=== PATIENT | male | born 1990 | race Caucasian/White ===

== ENCOUNTER 2017-04-04 19:41 | Emergency (ER) | payer OTHER, BC ==
[~2017-04-04] VITALS: Ht 170.2 cm; Wt 178.5 kg
[2017-04-04 19:43] VITALS: BP 183/102; TEMP 36.7; Ht 170.2 cm; Wt 178.5 kg
--- NOTE | 2017-04-04 20:22 | DIAGNOSTIC IMAGING REPORT ---
RIGHT SHOULDER MIN 2 VIEWS ROUTINE CLINICAL HISTORY: 26 years-old Male presenting with fall at work; R shoulder pain. TECHNIQUE: Internal rotation, external rotation, Grashey views of the right shoulder were obtained. COMPARISON: None. FINDINGS: Anterior dislocation of the humeral head relative to the glenoid. No osseous irregularity of the humeral head or glenoid to suggest fracture. Acromioclavicular joint congruent. Visualized portion of the right hemithorax normal. IMPRESSION: Anterior dislocation of the humeral head. No apparent fracture. The report will be called/faxed according to standard departmental protocol. Electronically signed by: Chaz David M.D. 04/04/2017 8:21 PM Dictated Date/Time: 04/04/2017 8:19 PM
--- NOTE | 2017-04-04 20:57 | DIAGNOSTIC IMAGING REPORT ---
RIGHT SHOULDER MIN 2 VIEWS ROUTINE CLINICAL HISTORY: 26 years-old Male presenting with ? reduction of ant R shoulder dislocation Right. TECHNIQUE: Internal rotation, external rotation, and Grashey views of the right shoulder were obtained. COMPARISON: Plain radiographs of the right shoulder performed earlier the same day. FINDINGS: Previously noted dislocation of the right humeral head is no longer apparent on internal or external views. Glenohumeral and acromioclavicular joints congruent. No acute fracture. Visualized portions of the right hemithorax normal. IMPRESSION: Interval reduction of the right humeral head. No acute osseous abnormality. Electronically signed by: Chaz David M.D. 04/04/2017 8:56 PM Dictated Date/Time: 04/04/2017 8:55 PM
[2017-04-04 21:18] VITALS: PULSE 96; O2SAT 95
--- NOTE | 2017-04-05 01:41 | EMERGENCY ROOM VISIT NOTE ---
ED Visit Note First contact with patient: 19:54 Chief Complaint: Right shoulder pain. History of Present Illness: Mr. Crane is a 26-year-old white male who ambulates into the ED complaining of right shoulder pain over the distal clavicle and humeral head. Patient reports he fell at work approximately one hour ago; he reports he slipped on a wet floor. He is unsure the position of the shoulder at the time of the fall. He reports for the fall he was not experiencing any lightheadedness or dizziness, the time of the fall he did not strike his head and since the fall he has had no signs of head injury. Currently he describes his pain as sharp and throbbing. He rates his discomfort 7/10. His pain is nonradiating. His pain worsens with palpation and all attempts to move the shoulder. He has not identified any alleviating factors related to the pain. He has not taken any medications for pain prior to arrival at the hospital. He denies any associated neck pain, elbow pain, forearm pain, wrist pain, arm weakness/numbness/tingling. He denies any previous significant injuries or surgeries to the right shoulder. Review of Systems: As noted above in history of present illness. 8 body systems were reviewed and found to be negative as noted above. Past Medical History: Patient denies. Current Medications: Patient denies. Allergies to Medications: Sulfa. Social History: Patient is currently employed; he feels safe in his home environment; he denies tobacco use; he admits to alcohol use. Physical Examination: Vital Signs: Date Time Temp Pulse Resp B/P (MAP) Pulse Ox O2 Delivery O2 Flow Rate FiO2 04/04/17 21:18 96 20 95 04/04/17 19:43 36.7 105 18 183/102 96 Room Air GENERAL: 26-year-old male in mild to moderate distress due to pain, nontoxic- appearing, afebrile and hemodynamically stable. NEUROLOGICAL: Awake, alert and oriented to person, place and time. Answering questions appropriately and following commands. Normal gait. No focal motor or sensory deficits. SKIN: Warm, dry and pink. No soft tissue trauma noted. HEENT: Atraumatic and normocephalic. BACK: No tenderness over the bony cervical and thoracic spine. THORAX: Lungs sounds are clear to auscultation and equal bilaterally with symmetrical chest wall. No crepitus, tenderness, subcutaneous air or deformities noted. RIGHT UPPER EXTREMITY: Questionable deformity at the humeral head. No tenderness over the distal clavicle or acromioclavicular joint. I do not appreciate any local bony crepitus. No tenderness over the scapula. Patient refused to do range of motion exercises due to pain. No tenderness over the distal humerus, elbow, forearm, wrist or hand. Throughout the lower arm the skin was warm and pink and capillary refill is brisk. He was able to distinguish light sensations through all dermatomes. ED Course: Patient is assessed as noted above. Patient's medication list was reviewed. Patient was offered pain medications and refused. Right Shoulder X-Rays: Were read by myself and the radiologist showing a anterior dislocation of the humeral head. No fractures were noted. While patient was being x-rayed he reports he felt a popping sensation in his shoulder and reported a significant reduction in his pain. Patient was reevaluated and there was no longer any deformity and he only had minimal tenderness over the humeral head. Repeat Right Shoulder X-Rays: Were read by myself and the radiologist showing no fractures or dislocations and reduction of his dislocation. Patient's right shoulder was placed in a sling. Patient was educated about today's findings and instructed on his treatment plan ; he verbalizes understanding and agreement with this plan. Clinical Impression: Right shoulder dislocation. Work related injury. Disposition: Patient discharged home in stable condition accompanied by female friends; prior to departure he was reassessed and subjectively reported that he was pain-free. Plan: Comfort measures were discussed with the patient including rest, ice, splint use and ibuprofen and acetaminophen. Patient was encouraged to follow-up with Workmen's Compensation for recheck and return to work instruction. Patient was encouraged return to the ED for worsening/uncontrolled pain, uncontrolled swelling, right upper extremity weakness/numbness/tingling or any new/concerning symptoms.
== END 2017-04-04 21:20 | disposition home or self-care (01) ==
LOC: C.EDB 19:44 → C.EDD 21:20
DX: S43.004A Unspecified dislocation of right shoulder joint, initial encounter (principal); W01.198A Fall on same level from slipping, tripping and stumbling with subsequent striking against other object, initial encounter

== ENCOUNTER 2019-08-01 14:27 | Inpatient (IN) ==
[2019-08-01 15:29] LABS: Alanine Aminotransferase 24 U/L (12-78); Albumin Level 1.9 gm/dl (3.4-5.0); Aspartate Aminotransferase 23 U/L (15-37); BUN Creatinine Ratio 9.1 (10-20); Blood Urea Nitrogen 8 mg/dl (7-18); Calcium 8.8 mg/dl (8.5-10.1); Carbon Dioxide 27 mmol/L (21-32); Chloride 105 mmol/L (98-107); Creatinine Clr Calc Pharmacy 227.2 ml/min; Est GFR (African American) 141.5; Glucose 106 mg/dl (70-99); Magnesium 1.6 mg/dl (1.8-2.4); Potassium 4.2 mmol/L (3.5-5.1); Sodium 139 mmol/L (136-145)
[2019-08-01 15:34] LABS: Albumin Globulin Ratio 0.5 (0.9-2); Alkaline Phosphatase 109 U/L (45-117); Bilirubin,Total 0.7 mg/dl (0.2-1); Globulin 4.2 gm/dl (2.5-4.0); NT Pro B Type Natriuretic Pept 4442 pg/ml (0-450); Total Protein 6.1 gm/dl (6.4-8.2); Troponin I < 0.015 ng/ml (0-0.045)
[2019-08-01 15:38] LABS: Basophils # (auto) 0.03 K/uL (0-0.2); Basophils % (auto) 0.5 %; Eosinophils # (auto) 0.05 K/uL (0-0.5); Eosinophils % (auto) 0.9 %; Hematocrit (blood only) 45.1 % (42-52); Hemoglobin 14.6 g/dL (14.0-18.0); Immature Granulocytes # (auto) 0.01 K/uL (0.00-0.02); Immature Granulocytes % (auto) 0.2 %; Lymphocytes # (auto) 1.08 K/uL (1.2-3.4); Mean Corpuscular Hemoglobin 28.2 pg (25-34); Mean Corpuscular Hgb Conc 32.4 g/dL (32-36); Mean Corpuscular Volume 87.1 fL (80-100); Mean Platelet Volume 10.3 fL (7.4-10.4); Monocytes # (auto) 0.63 K/uL (0.11-0.59); Monocytes % (auto) 11.1 %; Neutrophils # (auto) 3.89 K/uL (1.4-6.5); Neutrophils % (auto) 68.3 %; Platelet Count 281 K/uL (130-400); RDW Coefficient of Variation 15.7 % (11.5-14.5); RDW Standard Deviation 50.2 fL (36.4-46.3); Red Blood Count 5.18 M/uL (4.7-6.1); White Blood Count 5.69 K/uL (4.8-10.8)
[2019-08-01 16:57] LABS: INR 1.3 (0.9-1.1); Partial Thromboplastin Time 28.1 Seconds (21.0-31.0)
--- NOTE | 2019-08-01 17:19 | CT Scan Report ---
CT angio chest PE protocol CT DOSE: 1147.39 mGy.cm HISTORY: 28 years-old Male with EVAL FOR PE. Acute shortness of breath TECHNIQUE: Multiple CTA images of the chest were obtained after the intravenous administration of 117 ml Optiray 320. Coronal and sagittal MIPS were obtained from the axial data set and were submitted for review. All measurements were obtained according to NASCET criteria. A dose lowering technique w as utilized adhering to the principles of ALARA. COMPARISON: Chest radiographs of same day FINDINGS: CTA: Moderate multichamber cardiomegaly. Small pericardial effusion is most pronounced inferiorly. Left he art structures are not well opacified secondary to contrast bolus timing. No thoracic aortic aneurysm or dissection identified. Pulmonary arterial tree is not well opacified secondary to contrast bolus timing. The lobar, segmental and subsegmental branches specifically are not well evaluated. No centra l pulmonary emboli are identified. CT CHEST: Unremarkable thyroid. Nonspecific mildly prominent hilar and subcarinal lymph nodes with mildly enlar ged subcarinal lymph nodes, nonspecific. Trace right and small left pleural effusions. No pneumothora x. Mild bilateral intralobular septal thickening. Mild bilateral bronchial wall thickening. Linear kilgore bsegmental and patchy bibasilar groundglass opacities suggest atelectasis. Mild air trapping within t he lung bases. 4 mm calcified granuloma of the lingula. Central airways appear patent. The liver is enlarged. There is suggestion of hepatic steatosis. Nonspecific body wall edema. Bilater al gynecomastia. Bones appear intact. IMPRESSION: 1. Cardiomegaly with small pericardial effusion. 2. Trace right and small left pleural effusions. 3. Suboptimal evaluation of the pulmonary arterial tree secondary to contrast bolus timing. No centra l pulmonary embolus identified. 4. Mild left greater than right bibasilar atelectasis with air trapping. The above report was generated using voice recognition software. It may contain grammatical, syntax o r spelling errors. Electronically signed by: Sourav Beaulieu M.D. 08/01/2019 5:17 PM
[2019-08-01] MEDS ORDERED: FUROSEMIDE 40 MG/4 ML VIAL IV STA (17:38)
--- NOTE | 2019-08-01 18:46 | History & Physical Report ---
Date of Service August 01, 2019 Assessment & Plan (1) New onset of congestive heart failure: Add IV Lasix. Check echocardiogram. Cardiology consult. (2) Pericardial effusion: (3) Pleural effusion: (4) AG (obstructive sleep apnea): CPAP nightly (5) Anxiety: Continue home medications (6) Anasarca: (7) Lymphedema: (8) DVT prophylaxis: Add SQ heparin History of Present Illness Chief Complaint: Shortness of breath and swelling of the body Primary Care P jarrod: Marie Pompa MD The patient is 28-year-old male with super morbid obesity; he has noted gradually progressive dyspnea and swelling of the legs for the last 2 months. He has been taking Lasix which was switched to HCTZ yesterday by his family physician. Today he noticed increasing scrotal edema. The further work-up done in the ER showed that patient has acute congestive heart failure with anasarca. He was started on IV Lasix and will be admitted for further evaluation and management. He denies any chest pain. No cough/ sputum, hemoptysis. He has a history of sleep apnea and is supposed to start using CPAP. Allergies Allergy/AdvReac Type Severity Reaction Status Date / Time Sulfa (Sulfonamide Allergy Unknown hives Verified 08/01/19 15:37 Antibiotics) Home Medications Home Medications Medication Instructions Recorded Confirmed Type CPAP Machine #1 ea 07/23/19 07/31/19 Rx miscellaneous medical supply #1 ea 07/23/19 07/31/19 Rx hydrochlorothiazide 25 mg PO QAM 08/01/19 08/01/19 History loratadine [Claritin] 10 mg PO QAM 08/01/19 08/01/19 History omega 5-djk-ahu-fish oil [Fish Oil] 2 cap PO QAM 08/01/19 08/01/19 History sertraline [Zoloft] 25 mg PO QAM 08/01/19 08/01/19 History sertraline [Zoloft] 50 mg PO QAM 08/01/19 08/01/19 History Past Med/Surg History Medical History Anasarca Anxiety Depression Lymphedema Obesity (Chronic) AG (obstructive sleep apnea) Surgical History No history of previous surgery Family History Mother Anxiety Colon cancer Gall bladder disease Father Hypertension Sister Anxiety Depression Grandfather Prostate cancer Social History marital status: Current Living Situation: Spouse current occupational status: employed current occupation: cook Feels Safe at Home: Yes Smoking Status: Former smoker Hx Alcohol Use: Yes Alcohol Intake Frequency: Rarely Hx Substance Use: No Physical Activity Frequency: 1-2 Times per Week Review of Systems Review of Systems: All systems reviewed & are unremarkable except as noted in HPI & below Endocrine: History of erectile dysfunction + Physical Exam Physical Exam: GENERAL : No acute distress EYES: No icterus, gaze conjugate NOSE: No evidence of epistaxis MOUTH: No lesions or candidiasis, mucosa moist NECK: Supple LUNGS: CTA B/L, no wheezes, rales or rhonchi HEART: Regular, rate controlled ABDOMEN: Soft, NT, ND, BS Present EXTREMITIES: Bilateral swelling of the legs and lymphedema noted. NEURO: A&OX3 Scrotal edema noted Results & Data Vital Signs (Past 12 Hours) Vital Signs Temp Pulse Resp BP Pulse Ox 08/01/19 17:14 113 H 21 133/88 95 08/01/19 16:30 114 H 21 92 08/01/19 16:23 116 H 23 136/86 96 08/01/19 16:00 112 H 20 95 08/01/19 15:30 112 H 21 93 08/01/19 15:11 117 H 23 136/86 93 08/01/19 15:04 118 H 22 94 08/01/19 14:55 119 H 95 08/01/19 14:29 97.7 F 125 H 22 165/114 H 91 Laboratory Results 08/01/19 15:00 08/01/19 15:00 Diagnostic Findings EVAL FOR PE. Acute shortness of breath TECHNIQUE: Multiple CTA images of the chest were obtained after the intravenous administration of 117 ml Optiray 320. Coronal and sagittal MIPS were obtained from the axial data set and were submitted for review. All measurements were obtained according to NASCET criteria. A dose lowering technique was utilized adhering to the principles of ALARA. COMPARISON: Chest radiographs of same day FINDINGS: CTA: Moderate multichamber cardiomegaly. Small pericardial effusion is most pronounced inferiorly. Left heart structures are not well opacified secondary to contrast bolus timing. No thoracic aortic aneurysm or dissection identified. Pulmonary arterial tree is not well opacified secondary to contrast bolus timing. The lobar, segmental and subsegmental branches specifically are not well evaluated. No central pulmonary emboli are identified. CT CHEST: Unremarkable thyroid. Nonspecific mildly prominent hilar and subcarinal lymph nodes with mildly enlarged subcarinal lymph nodes, nonspecific. Trace right and small left pleural effusions. No pneumothorax. Mild bilateral intralobular septal thickening. Mild bilateral bronchial wall thickening. Linear subsegmental and patchy bibasilar groundglass opacities suggest atelectasis. Mild air trapping within the lung bases. 4 mm calcified granuloma of the lingula. Central airways appear patent. The liver is enlarged. There is suggestion of hepatic steatosis. Nonspecific body wall edema. Bilateral gynecomastia. Bones appear intact. IMPRESSION: 1. Cardiomegaly with small pericardial effusion. 2. Trace right and small left pleural effusions. 3. Suboptimal evaluation of the pulmonary arterial tree secondary to contrast bolus timing. No central pulmonary embolus identified. 4. Mild left greater than right bibasilar atelectasis with air trapping. ULTRASOUND TESTES AND SCROTUM CLINICAL HISTORY: Scrotal swelling. COMPARISON STUDY: No priors. TECHNIQUE: Real-time, grayscale, and color Doppler sonography of the testes and scrotum is performed. Images are reviewed in the transverse and longitudinal planes. FINDINGS: The testes are normal in size and homogeneous in echotexture. The right testis measures 3.6 x 2.6 x 2.9 cm and the left testis measures 3.7 x 2.6 x 2.1 cm. No intratesticular mass is seen. Testicular blood flow is normal and symmetric. Normal Doppler waveforms are identified in both testes. The epididymal heads are normal in appearance. The right epididymal head measures 1.1 cm in length and the left epididymal head measures 1.2 cm in length. There are small bilateral hydroceles. No varicocele is seen. There is marked edema of the scrotal wall. IMPRESSION: 1. Unremarkable sonographic appearance of the testes. 2. There is marked nonspecific scrotal wall edema. 3. Small bilateral hydroceles. The above report was generated using voice recognition software. It may contain grammatical, syntax or spelling errors. Code Status & VTE Plan Code Status full code VTE Prophylaxis Plan VTE Prophylaxis will be ordered: Yes PG Care Time/CCT Total # of Minutes Spent Total Time Spent with Patient: Total time spent is greater than 50% in coordination of care (as documented) at patient's floor/unit and/or counseling patient:
[2019-08-01] MEDS ORDERED: NITROGLYCERIN SL 0.4 MG/TAB TAB SL PRN (20:08)
[2019-08-01] MEDS ORDERED: ACETAMINOPHEN 325 MG TAB PO PRN (20:08)
[2019-08-01] MEDS: FUROSEMIDE 40 MG in SYRINGE 0 ML IV SCH (20:58)
[2019-08-01] MEDS ORDERED: FUROSEMIDE 40 MG/4 ML VIAL IV SCH (21:00)
--- NOTE | 2019-08-01 21:28 | Emergency Department Note ---
Entered by Nicky Walsh acting as a scribe for Cedric Obregon MD ED Provider Note CHIEF COMPLAINT: Shortness of breath HISTORY OF PRESENT ILLNESS: The patient is a 28 year old male who presents to the Emergency Room with complaints of swelling. He reports last night he experienced swelling in his scrotum. He called his doctor this morning who ordered an ultrasound and CXR. The CXR showed possible fluid around his heart, and he was referred here to the ED. He does take daily blood pressure medication as well as Lasix. He notes his legs have been increasingly swollen and he occasionally feels short of breath. Movement worsens his breathing. He does admit to a recent cough. He denies any family history of sudden before the age of 50. He admits to bloating in his abdomen from the increased fluid but denies any pain. Pt denies LOC, headache, fevers, chills, diaphoresis, visual changes, neck pain, chest pain, nausea, vomiting, abdominal pain, back pain, melena, hematochezia, urinary symptoms, numbness, weakness, lymphadenopathy, rash, or other complaints. REVIEW OF SYSTEMS: See HPI for pertinent positives and negatives. A total of ten systems were reviewed and were otherwise negative. PMHx/PSHx: Anxiety. Depression. AG. SOCIAL HISTORY: Patient lives at home. PHYSICAL EXAM: GENERAL: Awake, alert, uncomfortable-appearing, in no distress HENT: Normocephalic, atraumatic. Oropharynx unremarkable. EYES: PERRL. Normal conjunctiva. Sclera non-icteric. NECK: Inspection normal. Non-tender. Supple. No nuchal rigidity. FROM. No masses. RESPIRATORY: Clear to auscultation. No wheezes. No rales. Normal respiratory effort. CARDIAC:Tachycardic rate. Normal rhythm. No murmurs. No rubs. Extremities warm and well perfused. Pulses equal. No JVD. GI: Soft, non-distended. No tenderness to palpation. No rebound or guarding. No masses. RECTAL: Deferred. MUSCULOSKELETAL: Atraumatic. Chest examination reveals no tenderness. The back is symmetrical on inspection without obvious abnormality. There is no CVA tenderness to palpation. No joint edema. LOWER EXTREMITIES: Calves are equal size bilaterally and non-tender. 3+ pitting edema up to lower abdomen. No discoloration. NEURO: Normal sensorium. No sensory or motor deficits noted. SKIN: No rash or jaundice noted. EMERGENCY DEPARTMENT COURSE: 1500: Past medical records reviewed. The patient was evaluated in room B11B, and a complete history and physical examination were performed. 1820: I discussed the patients case with Dr. Pantoja, [facility]. The patient will be further evaluated. MEDICAL DECISION MAKING: Prior records/ancillary studies reviewed. Triage Nursing notes reviewed and agree them. Additional history obtained from the family. The patient's history was concerning for leg swelling and mild shortness of breath. Differential diagnosis: Etiologies such as CHF, pulmonary embolism, pneumonia, COPD, reactive airway disease, cardiac ischemia, pneumothorax, musculoskeletal, infections, gastrointestinal, as well as others were entertained. Physical examination: 3+ lower extremity edema noted. The patient was not hypoxic. ER treatment provided: IV Lasix On reassessment the patient felt better. Diagnostic interpretation by me: The electrocardiogram revealed a low voltage QRS. No ischemia. The labs revealed an unremarkable CBC and chemistry panel. Troponin negative. The patient's BNP is significantly elevated concerning for CHF. Imaging studies: Chest CT angiogram revealed no evidence of pulmonary emboli. There was pericardial effusion as well as pleural effusions. The patient has findings consistent with new onset CHF. Further evaluation and management will be necessary in the hospital. Consultation: A consultation was placed with the hospitalist. The case was discussed and diagnostics were reviewed. The patient was evaluated in the ER for further treatment. IMPRESSION: New onset CHF. Tachycardia. Abnormal EKG. Pericardial effusion. Pleural effusion. PLAN: Further evaluation by hospitalist The scribe's documentation has been prepared under my direction and personally reviewed by me in its entirety. I confirm that the note above accurately reflects all work, treatment, procedures, and medical decision making performed by me. Impression & Plan New onset of congestive heart failure, Tachycardia, Abnormal EKG, Pericardial effusion, Pleural effusion Past Med/Surg History Medical History Anasarca Anxiety Depression Lymphedema Obesity (Chronic) AG (obstructive sleep apnea) Surgical History No history of previous surgery Family History Mother Anxiety Colon cancer Gall bladder disease Father Hypertension Sister Anxiety Depression Grandfather Prostate cancer Social History Preferred Language: Romansh Communication Ability: Effective Certified Medical Technician Required: No Beliefs That Will Affect Care: None marital status: Current Living Situation: Spouse current occupational status: employed current occupation: cook Feels Safe at Home: Yes Smoking Status: Never smoker Second Hand Exposure: No ; Hx Alcohol Use: No Hx Substance Use: No Physical Activity Frequency: 1-2 Times per Week Results & Data Vital Signs Vital Signs - 24 hr 08/01/19 14:29 08/01/19 14:43 08/01/19 14:55 Temperature 36.5 C Temperature Source Oral Pulse Rate 125 H 119 H Pulse Rate from SpO2 Sensor Respiratory Rate 22 Respiratory Effort / Characteristics Non-Labored Spontaneous Respiratory Depth Normal Blood Pressure 165/114 H Blood Pressure Mean 131 Blood Pressure Position Sitting Pulse Oximetry 91 95 Oxygen Delivery Method Room Air Room Air Room Air Sepsis Recent Fever Within 48 Hours No Sepsis Action Taken by Nursing No Action Required 08/01/19 15:04 08/01/19 15:07 08/01/19 15:11 Temperature Temperature Source Pulse Rate 118 H 117 H Pulse Rate from SpO2 Sensor 118 H 119 H Respiratory Rate 22 23 Respiratory Effort / Characteristics Respiratory Depth Blood Pressure 136/86 Blood Pressure Mean 95 Blood Pressure Position Pulse Oximetry 94 93 Oxygen Delivery Method Room Air Sepsis Recent Fever Within 48 Hours Sepsis Action Taken by Nursing 08/01/19 15:30 08/01/19 16:00 08/01/19 16:23 Temperature Temperature Source Pulse Rate 112 H 112 H 116 H Pulse Rate from SpO2 Sensor 111 H 113 H 115 H Respiratory Rate 21 20 23 Respiratory Effort / Characteristics Respiratory Depth Blood Pressure 136/86 Blood Pressure Mean 95 Blood Pressure Position Pulse Oximetry 93 95 96 Oxygen Delivery Method Sepsis Recent Fever Within 48 Hours Sepsis Action Taken by Nursing 08/01/19 16:30 08/01/19 17:14 08/01/19 17:30 Temperature Temperature Source Pulse Rate 114 H 113 H 112 H Pulse Rate from SpO2 Sensor 113 H 113 H 112 H Respiratory Rate 21 21 21 Respiratory Effort / Characteristics Respiratory Depth Blood Pressure 133/88 128/80 Blood Pressure Mean 106 104 Blood Pressure Position Pulse Oximetry 92 95 95 Oxygen Delivery Method Sepsis Recent Fever Within 48 Hours Sepsis Action Taken by Nursing 08/01/19 18:00 08/01/19 18:02 08/01/19 18:30 Temperature Temperature Source Pulse Rate 111 H 111 H 118 H Pulse Rate from SpO2 Sensor 118 H Respiratory Rate 17 17 14 Respiratory Effort / Characteristics Respiratory Depth Blood Pressure 133/95 Blood Pressure Mean 109 112 Blood Pressure Position Pulse Oximetry 97 Oxygen Delivery Method Sepsis Recent Fever Within 48 Hours Sepsis Action Taken by Skilled Nursing Medications Current Medication List: was personally reviewed by me Laboratory Data Attestation: I reviewed the patient's lab results. Result diagrams: 08/01/19 15:00 08/01/19 15:00 Lab Results 08/01/19 08/01/19 08/01/19 Range/Units 15:00 15:00 15:00 WBC 5.69 (4.8-10.8) K/uL RBC 5.18 (4.7-6.1) M/uL Hgb 14.6 (14.0-18.0) g/dL Hct 45.1 (42-52) % MCV 87.1 (80-100) fL MCH 28.2 (25-34) pg MCHC 32.4 (32-36) g/dL RDW Std Deviation 50.2 H (36.4-46.3) fL RDW Coeff of Leoncio 15.7 H (11.5-14.5) % Plt Count 281 (130-400) K/uL MPV 10.3 (7.4-10.4) fL Immature Gran % (Auto) 0.2 % Neut % (Auto) 68.3 % Lymph % (Auto) 19.0 % [place] % (Auto) 11.1 % Eos % (Auto) 0.9 % Baso % (Auto) 0.5 % Immature Gran # (Auto) 0.01 (0.00-0.02) K/uL Neut # (Auto) 3.89 (1.4-6.5) K/uL Lymph # (Auto) 1.08 L (1.2-3.4) K/uL [place] # (Auto) 0.63 H (0.11-0.59) K/uL Eos # (Auto) 0.05 (0-0.5) K/uL Baso # (Auto) 0.03 (0-0.2) K/uL PT Cancelled INR Cancelled APTT Cancelled PTT Ratio Cancelled Sodium 139 (136-145) mmol/L Potassium 4.2 (3.5-5.1) mmol/L Chloride 105 (98-107) mmol/L Carbon Dioxide 27 (21-32) mmol/L Anion Gap 7.0 (3-11) BUN 8 (7-18) mg/dl Creatinine 0.82 (0.6-1.4) mg/dl Est Cr Clr Drug Dosing 227.2 ml/min Est GFR ( Amer) 141.5 Est GFR (Non-Af Amer) 122.0 BUN/Creatinine Ratio 9.1 L (10-20) Glucose 106 H (70-99) mg/dl Calcium 8.8 (8.5-10.1) mg/dl Magnesium 1.6 L (1.8-2.4) mg/dl Total Bilirubin 0.7 (0.2-1) mg/dl AST 23 (15-37) U/L ALT 24 (12-78) U/L Alkaline Phosphatase 109 (45-117) U/L Troponin I < 0.015 (0-0.045) ng/ml NT-Pro-B Natriuret Pep 4442 H (0-450) pg/ml Total Protein 6.1 L (6.4-8.2) gm/dl Albumin 1.9 L (3.4-5.0) gm/dl Globulin 4.2 H (2.5-4.0) gm/dl Albumin/Globulin Ratio 0.5 L (0.9-2) 08/01/19 Range/Units 16:19 WBC (4.8-10.8) K/uL RBC (4.7-6.1) M/uL Hgb (14.0-18.0) g/dL Hct (42-52) % MCV (80-100) fL MCH (25-34) pg MCHC (32-36) g/dL RDW Std Deviation (36.4-46.3) fL RDW Coeff of Leoncio (11.5-14.5) % Plt Count (130-400) K/uL MPV (7.4-10.4) fL Immature Gran % (Auto) % Neut % (Auto) % Lymph % (Auto) % [place] % (Auto) % Eos % (Auto) % Baso % (Auto) % Immature Gran # (Auto) (0.00-0.02) K/uL Neut # (Auto) (1.4-6.5) K/uL Lymph # (Auto) (1.2-3.4) K/uL [place] # (Auto) (0.11-0.59) K/uL Eos # (Auto) (0-0.5) K/uL Baso # (Auto) (0-0.2) K/uL PT 13.0 H INR 1.3 H APTT 28.1 PTT Ratio 1.0 Sodium (136-145) mmol/L Potassium (3.5-5.1) mmol/L Chloride (98-107) mmol/L Carbon Dioxide (21-32) mmol/L Anion Gap (3-11) BUN (7-18) mg/dl Creatinine (0.6-1.4) mg/dl Est Cr Clr Drug Dosing ml/min Est GFR ( Amer) Est GFR (Non-Af Amer) BUN/Creatinine Ratio (10-20) Glucose (70-99) mg/dl Calcium (8.5-10.1) mg/dl Magnesium (1.8-2.4) mg/dl Total Bilirubin (0.2-1) mg/dl AST (15-37) U/L ALT (12-78) U/L Alkaline Phosphatase (45-117) U/L Troponin I (0-0.045) ng/ml NT-Pro-B Natriuret Pep (0-450) pg/ml Total Protein (6.4-8.2) gm/dl Albumin (3.4-5.0) gm/dl Globulin (2.5-4.0) gm/dl Albumin/Globulin Ratio (0.9-2) Administered Medications Furosemide 40 mg/ Syringe 4 mls @ 4 mls/min IV [id number] DAVID Stop: 08/31/19 20:59 Last Admin: 08/01/19 20:58 Dose: 4 mls/min Documented by: [id number] Discontinued Medications Furosemide (Lasix) 40 mg IV NOW STA Stop: 08/01/19 17:39 Last Admin: 08/01/19 18:18 Dose: 40 mg Documented by: [id number] Imaging Data Radiologist's Impression: Radiology results as stated below per my review and the radiologist's interpretation: CT angio chest PE protocol CT DOSE: 1147.39 mGy.cm HISTORY: 28 years-old Male with EVAL FOR PE. Acute shortness of breath TECHNIQUE: Multiple CTA images of the chest were obtained after the intravenous administration of 117 ml Optiray 320. Coronal and sagittal MIPS were obtained from the axial data set and were submitted for review. All measurements were obtained according to NASCET criteria. A dose lowering technique was utilized adhering to the principles of ALARA. COMPARISON: Chest radiographs of same day FINDINGS: CTA: Moderate multichamber cardiomegaly. Small pericardial effusion is most pronounced inferiorly. Left heart structures are not well opacified secondary to contrast bolus timing. No thoracic aortic aneurysm or dissection identified. Pulmonary arterial tree is not well opacified secondary to contrast bolus timing. The lobar, segmental and subsegmental branches specifically are not well evaluated. No central pulmonary emboli are identified. CT CHEST: Unremarkable thyroid. Nonspecific mildly prominent hilar and subcarinal lymph nodes with mildly enlarged subcarinal lymph nodes, nonspecific. Trace right and small left pleural effusions. No pneumothorax. Mild bilateral intralobular septal thickening. Mild bilateral bronchial wall thickening. Linear subsegmental and patchy bibasilar groundglass opacities suggest atelectasis. Mild air trapping within the lung bases. 4 mm calcified granuloma of the lingula. Central airways appear patent. The liver is enlarged. There is suggestion of hepatic steatosis. Nonspecific body wall edema. Bilateral gynecomastia. Bones appear intact. IMPRESSION: 1. Cardiomegaly with small pericardial effusion. 2. Trace right and small left pleural effusions. 3. Suboptimal evaluation of the pulmonary arterial tree secondary to contrast bolus timing. No central pulmonary embolus identified. 4. Mild left greater than right bibasilar atelectasis with air trapping. The above report was generated using voice recognition software. It may contain grammatical, syntax or spelling errors. Electronically signed by: Sourav Beaulieu M.D. 08/01/2019 5:17 PM ECG Data Attestation: I personally reviewed and interpreted this ECG as follows: Indication: + SOB/dyspnea Rate (beats per minute): 118 Rhythm: sinus tachycardia ECG Intervals/blocks: + Normal QRS and + Normal QT ECG ST segments: no ST depression and no ST elevation ECG Findings: + Poor R wave progression and + Other (Low voltage QRS); no PACs and no PVCs Blood Pressure Blood Pressure Findings: Elevated blood pressure Blood Pressure Disposition: further management by hospitalist Discharge Plan Visit Data *Final* Discharge Date/Time: 08/01/19 19:38 Chief Complaint: Shortness of Breath/Dyspnea Stated Complaint: FLUID IN CHEST ED Provider: Cedric Obregon Discharge Problem: New onset of congestive heart failure, Tachycardia, Abnormal EKG, Pericardial effusion, Pleural effusion Patient Disposition: Admitted As Inpatient Discharge Instructions Interventions: ED Discharge Assessment Last Done: 08/01/19 19:38 The scribe's documentation has been prepared under my direction and personally reviewed by me in its entirety. I confirm that the note above accurately reflect s all work, treatment, procedures, and medical decision making performed by me.
[2019-08-01 23:22] LABS: Chol HDL Ratio 5; Cholesterol 217 mg/dl (0-200); HDL Cholesterol 47 mg/dl; LDL Cholesterol Calculated 145 mg/dl; Triglycerides 126 mg/dl (0-150); VLDL Cholesterol 25 mg/dl
[2019-08-02 03:24] LABS: Hematocrit (blood only) 41.1 % (42-52); Hemoglobin 13.4 g/dL (14.0-18.0); Mean Corpuscular Hemoglobin 28.2 pg (25-34); Mean Corpuscular Hgb Conc 32.6 g/dL (32-36); Mean Corpuscular Volume 86.5 fL (80-100); Mean Platelet Volume 9.7 fL (7.4-10.4); Platelet Count 247 K/uL (130-400); RDW Coefficient of Variation 15.8 % (11.5-14.5); RDW Standard Deviation 50.2 fL (36.4-46.3); Red Blood Count 4.75 M/uL (4.7-6.1); White Blood Count 6.34 K/uL (4.8-10.8)
[2019-08-02 03:43] LABS: BUN Creatinine Ratio 9.1 (10-20); Blood Urea Nitrogen 6 mg/dl (7-18); Calcium 8.6 mg/dl (8.5-10.1); Carbon Dioxide 31 mmol/L (21-32); Chloride 106 mmol/L (98-107); Est GFR (African American) > 150.0; Glucose 86 mg/dl (70-99); Magnesium 1.5 mg/dl (1.8-2.4); Sodium 141 mmol/L (136-145)
[2019-08-02 03:48] LABS: Troponin I < 0.015 ng/ml (0-0.045)
[2019-08-02 04:07] LABS: Potassium 3.5 mmol/L (3.5-5.1)
[2019-08-02] MEDS: ALBUT/IPRATROP 3MG/0.5MG NEB 3 ML VIAL NEB SCH ×2 (07:31→11:16)
[2019-08-02] MEDS: SERTRALINE HCL 50 MG TABLET PO SCH ×2 (08:01)
[2019-08-02] MEDS: FUROSEMIDE 40 MG in SYRINGE 0 ML IV SCH ×2 (08:01→17:08)
[2019-08-02] MEDS ORDERED: ASPIRIN 81 MG ECTAB PO SCH (09:00)
[2019-08-02 10:23] LABS: Appearance Urine Clear (Clear); Bilirubin Urine Negative (Negative); Blood Urine Negative (Negative); Color Urine Yellow; Glucose Urine UA Negative (Negative); Ketones Urine Negative (Negative); Leukocyte Esterase Urine Negative (Negative); Nitrite Urine Negative (Negative); Protein Urine Negative (Negative); Specific Gravity Urine 1.008 (1.000-1.030); Urobilinogen Urine Negative (Negative)
[2019-08-02 10:55] LABS: Creatinine Urine Random < 13.0 mg/dl; Total Protein Urine Random 7.6 mg/dl (0-11.9)
[2019-08-02] MEDS ORDERED: POTASSIUM CHLORIDE 20 MEQ TABCR PO STA (11:08)
[2019-08-02] MEDS ORDERED: ALBUT/IPRATROP 3MG/0.5MG NEB 3 ML VIAL NEB PRN (11:11)
--- NOTE | 2019-08-02 11:23 | Cardiology Consultation ---
Date of Consultation August 02, 2019 Assessment & Plan (1) New onset of congestive heart failure: He presents with progressive fluid retention consistent with congestive heart failure. This is happened over the last 3 months, he has been placed on diuretics and despite that has continued to have increasing edema and weight. He will need to be diuresed, he has lost some fluid since arrival and we need to continue with intravenous diuresis. His albumin is low which is probably contributory, but it is mostly his left ventricular dysfunction causing his heart failure. (2) Anasarca: He has anasarca with severe peripheral edema, extending up to his waist, he also feels that his arms are puffy as well. He has a massive amount of fluid which we will need to remove. (3) Pericardial effusion: He does have a pericardial effusion identified on echocardiography. I believe this is part of his cardiomyopathy and not a separate issue. I would diurese him and at some point will repeat the echo to see if the effusion has resolved somewhat. (4) Cardiomyopathy: He has a severe dilated cardiomyopathy which based on symptoms is about 3 months, perhaps little bit longer, and duration. There is no obvious cause. He does not recall having a viral illness but he may not recall it, he does not have any other obvious cause but we will need to look for hemochromatosis, protein studies and Lyme and HIV. It is very unlikely that this is ischemic, I do not think we need an ischemia evaluation at this time. History of Present Illness Reason for Consultation: Peripheral edema Attending Physician: Faye Mcbride MD History of Present Illness This is a 28-year-old male with a history of sleep apnea but no known heart disease. He has been having progressive edema over the last 3 months, he is also been quite short of breath and has dyspnea on exertion. He has been evaluated for sleep apnea recently and apparently has severe sleep apnea but he does not have an appliance yet. He is morbidly obese and is noticed that his weight has risen considerably over the last 3 months with his edema. He was started on oral Lasix as an outpatient several weeks ago and even with that he had an increase in edema. He does not have exertional chest discomfort, he has not had lightheadedness, dizziness, presyncope or syncope. He presented to the emergency room yesterday after being followed as an outpatient, he presented due to progressive edema and scrotal edema. Allergies Allergy/AdvReac Type Severity Reaction Status Date / Time Sulfa (Sulfonamide Allergy Unknown hives Verified 08/01/19 15:37 Antibiotics) Home Medications Home Medications Medication Instructions Recorded Confirmed Type CPAP Machine #1 ea 07/23/19 08/02/19 Rx miscellaneous medical supply #1 ea 07/23/19 08/02/19 Rx hydrochlorothiazide 25 mg PO QAM 08/01/19 08/01/19 History loratadine [Claritin] 10 mg PO QAM 08/01/19 08/01/19 History omega 3-pdw-[id number]-fish oil [Fish Oil] 2 cap PO QAM 08/01/19 08/01/19 History sertraline [Zoloft] 25 mg PO QAM 08/01/19 08/01/19 History sertraline [Zoloft] 50 mg PO QAM 08/01/19 08/01/19 History Patient History Medical History Anasarca Anxiety Depression Lymphedema Obesity (Chronic) AG (obstructive sleep apnea) Surgical History No history of previous surgery Family History Mother Anxiety Colon cancer Gall bladder disease Father Hypertension Sister Anxiety Depression Grandfather Prostate cancer Social History Preferred Language: Malagasy Communication Ability: Effective Quality Control Head Required: No Beliefs That Will Affect Care: None marital status: Current Living Situation: Spouse current occupational status: employed current occupation: cook Feels Safe at Home: Yes Smoking Status: Never smoker Second Hand Exposure: No ; Hx Alcohol Use: No Hx Substance Use: No Physical Activity Frequency: 1-2 Times per Week Review of Systems Review of Systems: All systems reviewed & are unremarkable except as noted in HPI & below Physical Exam Physical Exam: Constitutional: Alert, cooperative and in no distress. He is morbidly obese. HEENT: Unremarkable Neck: No jugular venous distention, carotid pulses are normal and equal bilaterally without bruits. Pulmonary: Clear to auscultation bilaterally. Cardiac: Regular somewhat rapid rhythm with no murmur, gallop or rub. Abdomen: Soft, nontender with normal bowel sounds. Extremities: +3 bilateral pretibial pitting edema, he has edema extending up to his waist and perhaps higher. Distal pulses intact. Neurologic: No focal findings. Gait was not tested. Skin: No rash, ecchymoses or petechiae. His distal lower extremities are somewhat erythematous. Results & Data Vital Signs (Past 12 Hours) Vital Signs Temp Pulse Pulse Resp BP BP Pulse Ox 08/02/19 07:34 36.6 C 111 H 22 130/88 96 08/02/19 04:47 36.6 C 108 H 20 122/80 90 08/02/19 01:48 104 H 16 94 08/01/19 23:59 36.7 C 117 H 20 113/68 92 Diagnostic Findings Abnormal lab results 08/01/19 08/01/19 08/01/19 Range/Units 15:00 15:00 16:19 Hgb (14.0-18.0) g/dL Hct (42-52) % RDW Std Deviation 50.2 H (36.4-46.3) fL RDW Coeff of Leoncio 15.7 H (11.5-14.5) % Lymph # (Auto) 1.08 L (1.2-3.4) K/uL [place] # (Auto) 0.63 H (0.11-0.59) K/uL PT 13.0 H (9.0-12.0) Seconds INR 1.3 H (0.9-1.1) BUN (7-18) mg/dl BUN/Creatinine Ratio 9.1 L (10-20) Glucose 106 H (70-99) mg/dl Magnesium 1.6 L (1.8-2.4) mg/dl NT-Pro-B Natriuret Pep 4442 H (0-450) pg/ml Total Protein 6.1 L (6.4-8.2) gm/dl Albumin 1.9 L (3.4-5.0) gm/dl Globulin 4.2 H (2.5-4.0) gm/dl Albumin/Globulin Ratio 0.5 L (0.9-2) Cholesterol (0-200) mg/dl Urine pH (4.5-7.5) 08/01/19 08/02/19 08/02/19 Range/Units 22:50 03:05 03:05 Hgb 13.4 L (14.0-18.0) g/dL Hct 41.1 L (42-52) % RDW Std Deviation 50.2 H (36.4-46.3) fL RDW Coeff of Leoncio 15.8 H (11.5-14.5) % Lymph # (Auto) (1.2-3.4) K/uL [place] # (Auto) (0.11-0.59) K/uL PT (9.0-12.0) Seconds INR (0.9-1.1) BUN 6 L (7-18) mg/dl BUN/Creatinine Ratio 9.1 L (10-20) Glucose (70-99) mg/dl Magnesium 1.5 L (1.8-2.4) mg/dl NT-Pro-B Natriuret Pep (0-450) pg/ml Total Protein (6.4-8.2) gm/dl Albumin (3.4-5.0) gm/dl Globulin (2.5-4.0) gm/dl Albumin/Globulin Ratio (0.9-2) Cholesterol 217 H (0-200) mg/dl Urine pH (4.5-7.5) 08/02/19 Range/Units 10:00 Hgb (14.0-18.0) g/dL Hct (42-52) % RDW Std Deviation (36.4-46.3) fL RDW Coeff of Leoncio (11.5-14.5) % Lymph # (Auto) (1.2-3.4) K/uL [place] # (Auto) (0.11-0.59) K/uL PT (9.0-12.0) Seconds INR (0.9-1.1) BUN (7-18) mg/dl BUN/Creatinine Ratio (10-20) Glucose (70-99) mg/dl Magnesium (1.8-2.4) mg/dl NT-Pro-B Natriuret Pep (0-450) pg/ml Total Protein (6.4-8.2) gm/dl Albumin (3.4-5.0) gm/dl Globulin (2.5-4.0) gm/dl Albumin/Globulin Ratio (0.9-2) Cholesterol (0-200) mg/dl Urine pH 8.0 H (4.5-7.5) His electrocardiogram on admission shows sinus rhythm, he has low voltage throughout which is probably due to his weight, he has slight right axis deviation on his first although not on the second. No acute changes. Echocardiography: His echo shows severe left ventricular dysfunction with ejection fraction of 20 to 25%, with a dilated left ventricle. PG Care Time/CCT Total # of Minutes Spent Total Time Spent with Patient: Total time spent is greater than 50% in coordination of care (as documented) at patient's floor/unit and/or counseling patient:
[2019-08-02 12:30] LABS: Ferritin 37.2 ng/ml (8-388); Thyroid Stimulating Hormone 8.1 uIu/ml (0.300-4.500)
[2019-08-02 12:46] LABS: T4 Free Thyroxine 0.98 ng/dl (0.8-1.6)
[2019-08-02 12:53] LABS: Lyme Ab IgG w/WB Rflx Negative (Negative); Lyme Ab IgM w/WB Rflx Negative (Negative)
[2019-08-02] MEDS: MAGNESIUM SULFATE / D5W 1 GM/100 ML BAG IV SCH ×2 (13:06→14:04)
--- NOTE | 2019-08-02 13:40 | Hospitalist Progress Note ---
Date of Service August 02, 2019 Assessment & Plan (1) New onset of congestive heart failure: With new onset systolic acute CHF, likely developing over the last 3 months with weight gain of approximately 48 pounds in the last 6 months, likely all fluid weight Has severe obstructive sleep apnea-currently awaiting CPAP delivery Has super obesity, family history of atrial fibrillation and AG, but no CAD No anginal type symptoms, low suspicion for ischemic cardiomyopathy Troponin negative x2 -Checking Lyme, HIV, SPEP, UPEP, CHAYA level, iron studies Appreciate cardiology consultation -Continue to diurese with IV Lasix 40 mg twice daily -Follow BMP and replace lytes as needed -Eventually will start beta-lenka and either Entresto or CHAYA inhibitor -Daily weights, strict I's and O's, add fluid restriction of 1800 mL's daily, change to low-sodium diet -Consider ischemic evaluation with cardiac catheterization after diuresis prior to discharge-will discuss further with cardiology (2) Pericardial effusion: Moderate on echocardiogram, no tamponade physiology Likely secondary to CHF and hypoalbuminemia which is likely due to poor absorption from gut edema -Continue diuresis -Repeat echocardiogram limited in the near future to reassess (3) Pleural effusion: Secondary to CHF -Diuresing as above (4) AG (obstructive sleep apnea): Severe on recent outpatient home sleep study-still awaiting CPAP delivery -Continue CPAP while here in the hospital -Asked case management to check on the status of the delivery of his CPAP to home (5) Anasarca: Secondary to CHF as above as well as hypoalbuminemia-likely related to poor absorption from that edema as well as recent change in diet in an effort to lose weight -Follow (6) Anxiety: Continue home sertraline (7) Cardiomyopathy: As above (8) Tachycardia: Sinus tachycardia secondary to CHF -Diuresing and eventually will add beta-lenka (9) Abnormal EKG: Rightward axis deviation No evidence of PE on CT angiogram chest (10) Obesity: Has always been obese but baseline weight approximately 1 year ago was 380 pounds Recent weight gain is likely all fluid weight from CHF as above -Patient has made a conscious effort to eat healthier the last 2 months to lose weight -Continue counseling (11) Hypomagnesemia: Replace and follow in the morning (12) Hypokalemia: Secondary to loop diuretic, replace and follow morning (13) Hypoalbuminemia: Significantly low at 1.9, likely secondary to poor absorption as above Total protein low at 6.1 -Follow Check urinalysis for proteinuria (14) Hypoproteinemia: As above (15) Hyperlipidemia: LDL earlier this year was significant elevated at 191 and then on repeat is down to 140 after dietary changes -Likely needs to start on a statin drug -We will start atorvastatin -Needs follow-up LFTs and lipid panel in 6 weeks (16) DVT prophylaxis: SQ heparin, HARVEY jones Disposition-remain on PCU, would recommend inpatient stay for IV diuresis for many days given that he failed outpatient diuretics by mouth Subjective Patient feeling much improved today and has already diuresed several liters of fluid since admission. Feels the swelling in his legs is down and he is weaned off oxygen, less short of breath. Denies any chest pain now or ever with exertion. Feels that his weight gain and worsening shortness of breath has been over the last 3 months. He recalls minor colds but no febrile illnesses. Nob cody in the family with a history of congestive heart failure or coronary artery disease, however his mother prematurely at age 43 from colon cancer. Father with what sounds like PVCs, uncle with atrial fibrillation in his 40s, most males in the family with obstructive sleep apnea. Grandfather with atrial fibrillation, stroke. Patient has noted severe sleep apnea on recent sleep study but has not yet received his CPAP at home Discussed the case with cardiology Telemetry with sinus tachycardia in the 110s Review of Systems Review of Systems: All systems reviewed & are unremarkable except as noted in HPI & below Physical Exam Constitutional: + morbidly obese; no acute distress and not ill appearing Eyes: + anicteric sclerae; no eyelid abnormality ENMT: Ears: no hearing impairment and no external ear abnormality Neck: trachea midline, no thyromegaly + abnormal visual inspection (Obese) Respiratory: normal respiratory effort; no labored breathing Auscultation: + diminished lung sounds (At the bases bilaterally); no crackles, no rhonchi and no wheezes Cardiovascular: Rate/Rhythm: regular rhythm and + tachycardic Heart Sounds: no murmur Vessels: no JVD (Cannot assess for JVD due to obese neck) Extremities: + edema (4+ pitting edema bilateral lower extremities all the way up to upper abdomen) Chest (Breasts): Chest: normal inspection of chest Gastrointestinal (Abdomen): normal bowel sounds, soft, nontender, no hepatosplenomegaly Musculoskeletal: Extremities: no cyanosis and no clubbing Skin: + erythema (Chronic venous stasis changes in the legs bilaterally with mild erythema) Neurologic: moves all extremities and awake; no focal motor deficits Psychiatric: A+Ox3, euthymic affect Results & Data Vital Signs (Past 12 Hours) Vital Signs Temp Pulse Pulse Pulse Resp BP Pulse Ox 08/02/19 11:37 36.5 C 113 H 22 119/71 91 08/02/19 07:34 36.6 C 111 H 22 130/88 96 08/02/19 04:47 36.6 C 108 H 20 122/80 90 08/02/19 01:48 104 H 16 94 Laboratory Results Labs reviewed Diagnostic Findings Echocardiogram with severely dilated LV with global LV hypokinesis, EF 25-30%, mild pulmonary hypertension, moderate or cardial effusion without tamponade ECG Additional Comments: Sinus tachycardia, rightward axis deviation, no ST or T wave changes PG Care Time/CCT Total # of Minutes Spent Total Time Spent with Patient: Total time spent is greater than 50% in coordination of care (as documented) at patient's floor/unit and/or counseling patient:
[2019-08-02] MEDS: HEPARIN SOD 5,000 UNIT/0.5 ML VIAL SQ SCH (21:19)
[2019-08-03] MEDS: HEPARIN SOD 5,000 UNIT/0.5 ML VIAL SQ SCH ×3 (04:57→21:26)
[2019-08-03 07:00] LABS: BUN Creatinine Ratio 10.1 (10-20); Creatinine Clr Calc Pharmacy 230.4 ml/min; Est GFR (African American) 143.6; Est GFR (Non-African American) 123.9; Magnesium 1.7 mg/dl (1.8-2.4); Potassium 3.5 mmol/L (3.5-5.1)
[2019-08-03] MEDS: SERTRALINE HCL 50 MG TABLET PO SCH ×2 (07:26→07:27)
[2019-08-03] MEDS: FUROSEMIDE 40 MG in SYRINGE 0 ML IV SCH ×2 (07:26→16:53)
[2019-08-03] MEDS ORDERED: MAGNESIUM SULFATE / D5W 1 GM/100 ML BAG IV ONE ×2 (07:30→20:00)
[2019-08-03] MEDS: ATORVASTATIN 20 MG TAB PO SCH (07:58)
--- NOTE | 2019-08-03 13:48 | Hospitalist Progress Note ---
Date of Service August 03, 2019 Assessment & Plan (1) New onset of congestive heart failure: With new onset systolic acute CHF, likely developing over the last 3 months with weight gain of approximately 48 pounds in the last 6 months, likely all fluid weight Has severe obstructive sleep apnea-currently awaiting CPAP delivery Has super obesity, family history of atrial fibrillation and AG, but no CAD No anginal type symptoms, low suspicion for ischemic cardiomyopathy Troponin negative x2 -Checking Lyme-negative, HIV-negative, SPEP-pending, UPEP-pending, CHAYA level- pending, iron studies-no evidence of iron overload Appreciate cardiology consultation DOing very well with diuresis thus far, down -5Kg, still a long way to go Was not responding to po diuretics as outpt -Continue to diurese with IV Lasix 40 mg twice daily -Follow BMP and replace lytes as needed -Eventually will start beta-lenka and either Entresto or CHAYA inhibitor -Daily weights, strict I's and O's, fluid restriction of 1800 mL's daily, low- sodium diet -Consider ischemic evaluation with cardiac catheterization after diuresis prior to discharge-will discuss further with cardiology--> Dr. Toth/Eric do not think he needs ischemic eval (2) Pericardial effusion: Moderate on echocardiogram, no tamponade physiology Likely secondary to CHF and hypoalbuminemia which is likely due to poor absorption from gut edema -Continue diuresis -Repeat echocardiogram limited in the near future to reassess (3) Pleural effusion: Secondary to CHF -Diuresing as above (4) AG (obstructive sleep apnea): Severe on recent outpatient home sleep study-still awaiting CPAP delivery -Continue CPAP while here in the hospital -Asked case management to check on the status of the delivery of his CPAP to home (5) Anasarca: Secondary to CHF as above as well as hypoalbuminemia-likely related to poor absorption from that edema as well as recent change in diet in an effort to lose weight -Follow (6) Anxiety: Continue home sertraline (7) Cardiomyopathy: As above (8) Tachycardia: Sinus tachycardia secondary to CHF -Diuresing and eventually will add beta-lenka (9) Abnormal EKG: Rightward axis deviation No evidence of PE on CT angiogram chest (10) Obesity: Has always been obese but baseline weight approximately 1 year ago was 380 pounds Recent weight gain is likely all fluid weight from CHF as above -Patient has made a conscious effort to eat healthier the last 2 months to lose weight -Continue counseling (11) Hypomagnesemia: Replace and follow in the morning (12) Hypokalemia: Secondary to loop diuretic, replace and follow morning (13) Hypoalbuminemia: Significantly low at 1.9, likely secondary to poor absorption as above Total protein low at 6.1 -Follow Check urinalysis for proteinuria-negative (14) Hypoproteinemia: As above (15) Hyperlipidemia: LDL earlier this year was significant elevated at 191 and then on repeat is down to 140 after dietary changes - started atorvastatin 20mg daily -Needs follow-up LFTs and lipid panel in 6 weeks (16) DVT prophylaxis: SQ heparin, HARVEY jones Disposition-remain on PCU, would recommend inpatient stay for IV diuresis for many days given that he failed outpatient diuretics by mouth Subjective Pt feeling better today, was able to ambulate the halls with minimal dyspnea. Denies chest pain, not lightheaded. Had some mild nausea with magnesium infusion but now resolved. Denies abd pain or diarrhea. Is tolerating po Tele with ST, PVCs, and then had a 6 beat run of NSVT later in the afternoon I discussed his case with Cardiology Review of Systems Review of Systems: All systems reviewed & are unremarkable except as noted in HPI & below Physical Exam Constitutional: WD/WN, vitals as above + morbidly obese; no acute distress and not ill appearing Eyes: + anicteric sclerae; no eyelid abnormality ENMT: external ear and nose normal, oropharynx normal Ears: no hearing imp airment and no external ear abnormality Neck: trachea midline, no thyromegaly + abnormal visual inspection (Obese) Respiratory: normal respiratory effort, lungs clear to auscultation normal respiratory effort; no labored breathing Auscultation: + diminished lung sounds (At the bases bilaterally); no crackles, no rhonchi and no wheezes Cardiovascular: RRR, no murmur, no edema Rate/Rhythm: regular rhythm and + tachycardic Heart Sounds: no murmur Vessels: no JVD (Cannot assess for JVD due to obese neck) Extremities: + edema (3+ pitting edema bilateral lower extremities up to upper abdomen) Chest (Breasts): Chest: normal inspection of chest Gastrointestinal (Abdomen): normal bowel sounds, soft, nontender, no hepatosplenomegaly Musculoskeletal: Extremities: no cyanosis and no clubbing Skin: no rashes, warm and dry + erythema (Chronic venous stasis changes in the legs bilaterally with mild erythema) Neurologic: moves all extremities and awake; no focal motor deficits Psychiatric: A+Ox3, euthymic affect Results & Data Vital Signs (Past 12 Hours) Vital Signs Temp Pulse Pulse Resp BP Pulse Ox 08/03/19 11:54 37.0 C 82 20 135/71 98 08/03/19 10:45 107 H 08/03/19 08:00 36.5 C 109 H 18 134/72 96 08/03/19 02:58 36.5 C 112 H 19 123/84 93 Laboratory Results Labs reviewed PG Care Time/CCT Total # of Minutes Spent Total Time Spent with Patient: Total time spent is greater than 50% in coordination of care (as documented) at patient's floor/unit and/or counseling patient:
[2019-08-03 18:26] LABS: BUN Creatinine Ratio 10.4 (10-20); Calcium 8.8 mg/dl (8.5-10.1); Creatinine Clr Calc Pharmacy 224.7 ml/min; Est GFR (African American) 142.2; Est GFR (Non-African American) 122.7; Magnesium 1.7 mg/dl (1.8-2.4); Potassium 3.8 mmol/L (3.5-5.1)
[2019-08-03] MEDS ORDERED: POTASSIUM CHLORIDE 20 MEQ TABCR PO STA (19:27)
[2019-08-04] MEDS: HEPARIN SOD 5,000 UNIT/0.5 ML VIAL SQ SCH ×3 (05:50→21:07)
[2019-08-04] MEDS: FUROSEMIDE 40 MG in SYRINGE 0 ML IV SCH ×2 (08:38→17:34)
[2019-08-04] MEDS: SERTRALINE HCL 50 MG TABLET PO SCH ×2 (08:38→08:39)
[2019-08-04] MEDS: ATORVASTATIN 20 MG TAB PO SCH (08:39)
[2019-08-04 09:15] LABS: BUN Creatinine Ratio 11.1 (10-20); Blood Urea Nitrogen 8 mg/dl (7-18); Calcium 8.8 mg/dl (8.5-10.1); Carbon Dioxide 32 mmol/L (21-32); Chloride 109 mmol/L (98-107); Creatinine Clr Calc Pharmacy 256.9 ml/min; Est GFR (African American) > 150.0; Est GFR (Non-African American) 130.2; Glucose 98 mg/dl (70-99); Magnesium 1.8 mg/dl (1.8-2.4); Potassium 3.9 mmol/L (3.5-5.1); Sodium 144 mmol/L (136-145)
[2019-08-04] MEDS ORDERED: POTASSIUM CHLORIDE 20 MEQ TABCR PO STA (09:47)
[2019-08-04] MEDS ORDERED: MAGNESIUM SULFATE / D5W 1 GM/100 ML BAG IV ONE (10:15)
--- NOTE | 2019-08-04 13:05 | Hospitalist Progress Note ---
Date of Service August 04, 2019 Assessment & Plan (1) New onset of congestive heart failure: With new onset systolic acute CHF, likely developing over the last 3 months with weight gain of approximately 48 pounds in the last 6 months, likely all fluid weight Has severe obstructive sleep apnea-currently awaiting CPAP delivery Has super obesity, family history of atrial fibrillation and AG, but no CAD No anginal type symptoms, low suspicion for ischemic cardiomyopathy Troponin negative x2 -Checking Lyme-negative, HIV-negative, SPEP-pending, UPEP-pending, CHAYA level- pending, iron studies-no evidence of iron overload Appreciate cardiology consultation Continues to have large volume diuresis thus far, down -14Kg, still a LOT of edema present on exam Was not responding to po diuretics as outpt likely secondary to gut edema -Continue to diurese with IV Lasix 40 mg twice daily until skin care therapist rises -Follow BMP and replace lytes as needed to keep K+>4.0 and Mag>2.0-gave replacement today -Eventually will start beta-lenka and either Entresto or CHAYA inhibitor -Daily weights, strict I's and O's, fluid restriction of 1800 mL's daily, low- sodium diet -Consider ischemic evaluation with cardiac catheterization after diuresis prior to discharge-will discuss further with cardiology--> Dr. Toth/Eric do not think he needs ischemic eval -condition still continues to be very serious and requires continued hospital stay for IV medication and treatment, monitoring of electrolytes closely/daily (2) Pericardial effusion: Moderate on echocardiogram, no tamponade physiology Likely secondary to CHF and hypoalbuminemia which is likely due to poor absorption from gut edema -Continue diuresis -Repeat echocardiogram limited in the near future to reassess (3) Pleural effusion: Secondary to CHF -Diuresing as above (4) AG (obstructive sleep apnea): Severe on recent outpatient home sleep study-still awaiting CPAP delivery -Continue CPAP while here in the hospital -Asked case management to check on the status of the delivery of his CPAP to home (5) Anasarca: Secondary to CHF as above as well as hypoalbuminemia-likely related to poor absorption from that edema Persists -Follow (6) Anxiety: Continue home sertraline (7) Cardiomyopathy: As above (8) Tachycardia: Sinus tachycardia secondary to CHF -Diuresing and eventually will add beta-lenka (9) Abnormal EKG: Rightward axis deviation No evidence of PE on CT angiogram chest (10) Obesity: Has always been obese but baseline weight approximately 1 year ago was 380 pounds Recent weight gain is likely all fluid weight from CHF as above -Patient has made a conscious effort to eat healthier the last 2 months to lose weight -Continue counseling (11) Hypomagnesemia: Replace and follow in the morning (12) Hypokalemia: Secondary to loop diuretic, replace and follow morning (13) Hypoalbuminemia: Significantly low at 1.9, likely secondary to poor absorption as above Total protein low at 6.1 -Follow Check urinalysis for proteinuria-negative (14) Hypoproteinemia: As above (15) Hyperlipidemia: LDL earlier this year was significant elevated at 191 and then on repeat is down to 140 after dietary changes - started atorvastatin 20mg daily -Needs follow-up LFTs and lipid panel in 6 weeks (16) Nonsustained ventricular tachycardia: Had one 6 beat run of VT on 08/03 None since then -not surprising given low EF -replace lytes and follow on tele (17) DVT prophylaxis: SQ heparin, HARVEY jones Disposition-remain on PCU, would recommend inpatient stay for IV diuresis for many days given that he failed outpatient diuretics by mouth Subjective Feeling better, ambulating the halls, continues to void large amounts of urine. No chest pain, only minimal dyspnea on exertion. No lightheadedness. Tele with 6 beat run of NSVT, otherwise ST and NSR, rates 90s-110s Review of Systems Review of Systems: All systems reviewed & are unremarkable except as noted in HPI & below Physical Exam Constitutional: WD/WN, vitals as above + morbidly obese; no acute distress and not ill appearing Eyes: + anicteric sclerae; no eyelid abnormality ENMT: Ears: no hearing impairment and no external ear abnormality Neck: trachea midline, no thyromegaly + abnormal visual inspection (Obese) Respiratory: normal respiratory effort; no labored breathing Auscultation: + diminished lung sounds (At the bases bilaterally); no crackles, no rhonchi and no wheezes Cardiovascular: Rate/Rhythm: regular rhythm and + tachycardic Heart Sounds: no murmur Vessels: no JVD (Cannot assess for JVD due to obese neck) Extremities: + edema (3+ pitting edema bilateral lower extremities up to upper abdomen) Chest (Breasts): Chest: normal inspection of chest Gastrointestinal (Abdomen): normal bowel sounds, soft, nontender, no hepatosplenomegaly Musculoskeletal: Extremities: no cyanosis and no clubbing Skin: no rashes, warm and dry + erythema (Chronic venous stasis changes in the legs bilaterally with mild erythema) Neurologic: moves all extremities and awake; no focal motor deficits Psychiatric: A+Ox3, euthymic affect Genitourinary: + scrotal swelling Results & Data Vital Signs (Past 12 Hours) Vital Signs Temp Pulse Pulse Pulse Resp BP Pulse Ox 08/04/19 11:25 36.7 C 109 H 18 118/87 92 08/04/19 09:28 108 H 08/04/19 07:19 36.7 C 104 H 18 178/85 H 91 08/04/19 04:30 36.9 C 106 H 19 124/85 93 08/04/19 01:57 94 H 14 96 Laboratory Results 08/04/19 Range/Units 08:30 Sodium 144 (136-145) mmol/L Potassium 3.9 (3.5-5.1) mmol/L Chloride 109 H (98-107) mmol/L Carbon Dioxide 32 (21-32) mmol/L Anion Gap 3.0 (3-11) BUN 8 (7-18) mg/dl Creatinine 0.70 (0.6-1.4) mg/dl Est Cr Clr Drug Dosing 256.9 ml/min Est GFR ( Amer) > 150.0 Est GFR (Non-Af Amer) 130.2 BUN/Creatinine Ratio 11.1 (10-20) Glucose 98 (70-99) mg/dl Calcium 8.8 (8.5-10.1) mg/dl Magnesium 1.8 (1.8-2.4) mg/dl PG Care Time/CCT Total # of Minutes Spent Total Time Spent with Patient: Total time spent is greater than 50% in coordination of care (as documented) at patient's floor/unit and/or counseling patient:
[2019-08-05] MEDS: HEPARIN SOD 5,000 UNIT/0.5 ML VIAL SQ SCH ×3 (05:38→21:52)
[2019-08-05 07:05] LABS: BUN Creatinine Ratio 10.1 (10-20); Calcium 9.2 mg/dl (8.5-10.1); Creatinine Clr Calc Pharmacy 217.1 ml/min; Est GFR (African American) 141.5; Potassium 3.8 mmol/L (3.5-5.1)
--- NOTE | 2019-08-05 09:33 | Cardiology Progress Note ---
Date of Service August 05, 2019 Assessment & Plan (1) New onset of congestive heart failure: He presented with progressive fluid retention consistent with congestive heart failure. This had happened over the prior 3 months, he had been placed on diuretics and despite that he continued to have increasing edema and weight prior to admission. He has been aggressively diuresed, he has lost a lot of fluid since arrival but he still has a lot of fluid present in his legs and we need to continue with intravenous diuresis. His albumin is low which is probably contributory, but it is mostly his left ventricular dysfunction causing his heart failure. (2) Anasarca: He had anasarca with severe peripheral edema, extending up to his waist, he also felt that his arms were puffy as well. He had a massive amount of fluid which we will need to remove. We have made some progress, and it is predominantly in his legs at this point. (3) Pericardial effusion: He did have a pericardial effusion identified on his initial echocardiography. I believe this is part of his cardiomyopathy and CHF and not a separate issue. I will repeat the echo to see if the effusion has resolved somewhat. (4) Cardiomyopathy: He has a severe dilated cardiomyopathy which based on symptoms is about 3 months, perhaps little bit longer, in duration. There is no obvious cause. He does not recall having a viral illness but he may not recall it, he does not have any other obvious cause but we are still awaiting an CHAYA level and the protein electrophoresis. It is very unlikely that this is ischemic, I do not think we need an ischemia evaluation at this time. (5) Nonsustained ventricular tachycardia: He had a 21 beat of nonsustained ventricular tachycardia overnight. This was rapid and is worrisome. So far he is not on a beta-lenka and I was planning on starting that today in any case so I will do so, that may help. He has also been diuresed and there may be electrolyte abnormalities however what we are measuring including potassium and magnesium are not terribly remarkable. Nevertheless I think he should have a LifeVest when he goes home and I can arrange that. Subjective He is feeling considerably better than on admission. His shortness of breath has improved and he feels able to walk around the halls. He notes that he still has significant peripheral edema although thinks that it has improved somewhat and he notes that he has lost a great deal of fluid. He has no palpitations. Physical Exam Physical Exam: Constitutional: Alert, cooperative and in no distress. He is morbidly obese. Pulmonary: Clear to auscultation bilaterally. Cardiac: Regular rhythm with no murmur, gallop or rub. Abdomen: Soft, nontender with normal bowel sounds. Extremities: +3 bilateral pitting edema extending at least to his thighs. Skin: No rash, ecchymoses or petechiae. Results & Data Vital Signs (Past 12 Hours) Vital Signs Temp Pulse Pulse Pulse Resp BP Pulse Ox 08/05/19 07:11 36.4 C L 100 H 20 124/84 94 08/05/19 04:45 36.5 C 104 H 18 125/88 94 08/05/19 04:10 108 H 16 95 08/05/19 00:59 101 H 14 97 08/04/19 23:59 101 H 08/04/19 23:18 36.9 C 99 H 18 136/88 94 08/04/19 22:33 101 H 16 98 Laboratory Results Abnormal lab results 08/05/19 Range/Units 06:19 Glucose 103 H (70-99) mg/dl Diagnostic Findings Telemetry: Sinus tachycardia, one 21 beat run of rapid ventricular tachycardia overnight PG Care Time/CCT Total # of Minutes Spent Total Time Spent with Patient: Total time spent is greater than 50% in coordination of care (as documented) at patient's floor/unit and/or counseling patient:
[2019-08-05] MEDS: carvediloL 6.25 MG TAB PO SCH ×2 (10:16→21:51)
[2019-08-05] MEDS: SERTRALINE HCL 50 MG TABLET PO SCH ×2 (10:16)
[2019-08-05] MEDS: ATORVASTATIN 20 MG TAB PO SCH (10:16)
[2019-08-05] MEDS: FUROSEMIDE 40 MG in SYRINGE 0 ML IV SCH ×2 (10:16→15:22)
--- NOTE | 2019-08-05 15:30 | Hospitalist Progress Note ---
Date of Service August 05, 2019 Assessment & Plan (1) New onset of congestive heart failure: With new onset systolic acute CHF, likely developing over the last 3 months with weight gain of approximately 48 pounds in the last 6 months, likely all fluid weight. No anginal type symptoms, low suspicion for ischemic cardiomyopathy. - Checking Lyme-negative, HIV-negative, SPEP-pending, UPEP-pending, CHAYA level- pending, iron studies-no evidence of iron overload - Appreciate cardiology consultation - Instituting beta-lenka, ACEi - Daily weights, strict I's and O's, fluid restriction of 1800 mL's daily, low- sodium diet - Continue to diurese with IV Lasix 40 mg twice daily. - Follow BMP and replace lytes as needed to keep K+>4.0 and Mag>2.0-gave replacement today (2) Pericardial effusion: Moderate on echocardiogram, no tamponade physiology. Likely secondary to CHF and hypoalbuminemia which is likely due to poor absorption from gut edema. - Continue diuresis - Repeat echocardiogram limited in the near future to reassess (3) Pleural effusion: Secondary to CHF. - Diuresing as above (4) AG (obstructive sleep apnea): Severe on recent outpatient home sleep study - still awaiting CPAP delivery. - Continue CPAP while here in the hospital - Asked case management to check on the status of the delivery of his CPAP to home (5) Anxiety: Continue home sertraline (6) Tachycardia: Sinus tachycardia secondary to CHF. - Diuresing and adding beta-lenka (7) Obesity: Has always been obese but baseline weight approximately 1 year ago was 380 pounds. Recent weight gain is likely all fluid weight from CHF as above. - Patient has made a conscious effort to eat healthier the last 2 months to lose weight - Continue counseling (8) Hyperlipidemia: LDL earlier this year was significant elevated at 191 and then on repeat is down to 140 after dietary changes. - Started atorvastatin 20mg daily - Needs follow-up LFTs and lipid panel in 6 weeks (9) Nonsustained ventricular tachycardia: Had one 6 beat run of VT on 08/03, then another overnight on 08/04-08/05. - Electrolytes as above - Cardiology initiating LifeVest before discharge (10) DVT prophylaxis: SQ heparin, HARVEY jones Subjective Doing well today. Reports minimal shortness of breath, minimal edema, no other major concerns. He does have some questions about a possible LifeVest. Reports no fevers/chills, chest pain, shortness of breath, abdominal pain, nausea, or vomiting. Physical Exam Constitutional: WD/WN, vitals as above Eyes: EOM intact bilaterally; no conjunctival abnormality ENMT: external ear and nose normal, oropharynx normal Neck: trachea midline, no thyromegaly normal visual inspection Respiratory: normal respiratory effort, lungs clear to auscultation no respiratory distress Cardiovascular: RRR, no murmur, no edema Gastrointestinal (Abdomen): Inspection/Auscultation: abdomen normal to inspection; abdomen not distended Musculoskeletal: no cyanosis or clubbing, extremities motor strength 5/5 Skin: no rashes, warm and dry Neurologic: moves all extremities and awake Psychiatric: Orientation: alert, oriented to person and cooperative Results & Data Vital Signs (Past 12 Hours) Vital Signs Temp Pulse Pulse Pulse Resp BP Pulse Ox 08/05/19 15:03 36.7 C 102 H 20 136/85 93 08/05/19 11:39 36.6 C 105 H 20 105/73 91 08/05/19 07:11 36.4 C L 100 H 20 124/84 94 08/05/19 04:45 36.5 C 104 H 18 125/88 94 08/05/19 04:10 108 H 16 95 PG Care Time/CCT Total # of Minutes Spent Total Time Spent with Patient: Total time spent is greater than 50% in coordination of care (as documented) at patient's floor/unit and/or counseling patient:
--- NOTE | 2019-08-05 17:01 | Heart Failure Progress Note ---
Date of Service August 05, 2019 Assessment & Plan (1) Acute on chronic systolic (congestive) heart failure: Patient remains significantly hypervolemic on his exam. He is diuresing well at 2-3 L per day on IV Lasix 40 mg BID. Would continue to diurese him until his creatinine increases. Continue to monitor kidney function and electrolytes. Replete as needed. Continue strict I&Os. Continue daily standing weights. Recommend low-sodium diet, less than 2000 mg daily. Continue fluid restriction, less than 1500 mL per day. The heart failure program has been introduced and discussed with both the patient and his and they are agreeable. Patient will be enrolled. He should plan to follow up within 7 days of discharge. (2) Cardiomyopathy: Patient has a severe dilated cardiomyopathy that is idiopathic at this point. Dr. Reyes does not feel he requires an ischemic evaluation at this time. Secondary workup has been negative so far. Checking Lyme-negative, HIV- negative, SPEP-pending, UPEP-pending, CHAYA level-pending, iron studies-no evidence of iron overload. Continue guideline based medical therapy including carvedilol 6.25 mg BID and lisinopril 5 mg daily. We will continue to titrate as heart rate and blood pressure allow. Could consider transitioning to Entresto prior to discharge. He will require a 36 hour washout period. Patient will need to consider ICD if there is no improvement in his EF after reaching appropriate target therapy. (3) AG (obstructive sleep apnea): Noted to be severe on recent outpatient home sleep study. Could be a contributing factor to his volume overload. He is waiting on a CPAP machine. (4) Obesity: (5) Nonsustained ventricular tachycardia: Patient had 21 beat run of nonsustained ventricular tachycardia overnight. His beta-lenka has since been initiated. LifeVest has been ordered per Dr. Reyes and is awaiting delivery Disposition. Anticipate follow-up with heart failure program within 7 days of discharge. BMP, magnesium, pro BMP to be completed prior to appointment. We will continue to follow during hospitalization. Subjective Mr. Crane is feeling significantly improved today compared to last week. His is at the bedside. He is ambulating around the room without difficulty. He notes improvement in his breathing and lower extremity edema. He is diuresing well on his current dose of Lasix 40 mg IV BID. He is net negative of 11 L and his weight is down over 25 lb. His kidney function and electrolytes are stable. He had a 25 beat run of SVT overnight. He is tolerating carvedilol 6.25 mg BID and lisinopril 5 mg daily. Physical Exam Physical Exam: Constitutional: Alert, oriented, in no acute distress. Morbidly obese. HEENT: Head is atraumatic and normocephalic. EOMs intact. Sclera anicteric. Face is symmetric. No perioral cyanosis. Mucous membranes moist. Neck: Supple, difficult exam. Pulmonary: Normal respiratory effort, clear to auscultation bilaterally Cardiac: Regular rate and rhythm. Normal S1 and S2, no gallops, no rubs, no murmurs Extremities: 2+ radial pulses bilaterally. 2+ posterior tibialis pulses bilaterally. Significant, tense pitting edema to the thighs. No cyanosis or clubbing. Abdomen: Normal bowel sounds, soft, non-tender, no abdominal mass palpated Skin: Normal skin color, turgor, and pigmentation, no rash, no skin lesions Neurological: Patient is awake, alert, and oriented. Pleasant and cooperative. Answers questions appropriately. Speech is clear. Normal movement in all 4 extremities. Gait pattern is unremarkable. Results & Data Vital Signs (Past 12 Hours) Vital Signs Temp Pulse Resp BP Pulse Ox 08/05/19 15:03 98.1 F 102 H 20 136/85 93 08/05/19 11:39 97.9 F 105 H 20 105/73 91 08/05/19 07:11 97.5 F L 100 H 20 124/84 94 PG Care Time/CCT Total # of Minutes Spent Total Time Spent with Patient: Total time spent is greater than 50% in coordination of care (as documented) at patient's floor/unit and/or counseling patient:
[2019-08-05 21:06] LABS: Albumin 2.1 G/DL (3.8-4.8); Alpha 1 Globulin 0.4 G/DL (0.2-0.3); Alpha 2 Globulin 0.9 G/DL (0.5-0.9); Angiotensin Converting Enzyme 156 U/L (9-67); Beta-1-Globulin 0.4 G/DL (0.4-0.6); Beta-2-Globulin 0.5 G/DL (0.2-0.5); Gamma Globulin 0.7 G/DL (0.8-1.7); Monoclonal Protein Band 1 DNR G/DL (NOT DETECTED); Monoclonal Protein Band 2 DNR G/DL (NOT DETECTED); Monoclonal Protein Band 3 DNR G/DL (NOT DETECTED); Total Protein 5.1 G/DL (6.2-8.3)
[2019-08-06] MEDS: HEPARIN SOD 5,000 UNIT/0.5 ML VIAL SQ SCH ×3 (05:29→21:15)
[2019-08-06 07:37] LABS: Hematocrit (blood only) 42.6 % (42-52); Hemoglobin 13.4 g/dL (14.0-18.0); Mean Corpuscular Hemoglobin 28.8 pg (25-34); Mean Corpuscular Hgb Conc 31.5 g/dL (32-36); Mean Corpuscular Volume 91.4 fL (80-100); Mean Platelet Volume 10.3 fL (7.4-10.4); Platelet Count 215 K/uL (130-400); RDW Coefficient of Variation 16.2 % (11.5-14.5); RDW Standard Deviation 53.8 fL (36.4-46.3); Red Blood Count 4.66 M/uL (4.7-6.1); White Blood Count 5.49 K/uL (4.8-10.8)
[2019-08-06] MEDS: FUROSEMIDE 40 MG in SYRINGE 0 ML IV SCH (07:55)
[2019-08-06] MEDS: SERTRALINE HCL 50 MG TABLET PO SCH ×2 (07:55→07:56)
[2019-08-06] MEDS: ATORVASTATIN 20 MG TAB PO SCH (07:56)
[2019-08-06] MEDS: carvediloL 6.25 MG TAB PO SCH ×2 (07:56→21:15)
[2019-08-06 08:02] LABS: BUN Creatinine Ratio 12.6 (10-20); Calcium 8.8 mg/dl (8.5-10.1); Creatinine Clr Calc Pharmacy 221.9 ml/min; Est GFR (African American) 143.6; Est GFR (Non-African American) 123.9; Magnesium 1.9 mg/dl (1.8-2.4); Potassium 3.7 mmol/L (3.5-5.1)
[2019-08-06 08:03] LABS: Phosphorus 4.2 mg/dl (2.5-4.9)
--- NOTE | 2019-08-06 10:37 | Cardiology Progress Note ---
Date of Service August 06, 2019 Assessment & Plan (1) Acute on chronic systolic (congestive) heart failure: (2) Cardiomyopathy: He has a severe dilated cardiomyopathy which based on symptoms is about 3 months, perhaps little bit longer, in duration. There is no obvious cause. He does not recall having a viral illness but he may not recall it, he does have an elevated angiotensin-converting enzyme level. It is very unlikely that his cardiomyopathy is ischemic, I do not think we need an ischemia evaluation at this time. (3) AG (obstructive sleep apnea): (4) Obesity: (5) Nonsustained ventricular tachycardia: He had a 21 beat of nonsustained ventricular tachycardia several nights ago. This was rapid and is worrisome. He is now on carvedilol and seems to be tolerating it well, that may help. He has also been diuresed and there may be electrolyte abnormalities however what we are measuring including potassium and magnesium are not terribly remarkable. Nevertheless I think he should have a LifeVest when he goes home and I am in the process of arranging that. Subjective He is feeling well today, he has been ambulating in the eagle without difficulty. He still has edema but feels it is improving. He is not having difficulty with shortness of breath. Physical Exam Physical Exam: Constitutional: Alert, cooperative and in no distress. He is morbidly obese. Pulmonary: Clear to auscultation bilaterally. Cardiac: Regular rhythm with no murmur, gallop or rub. Abdomen: Soft, nontender with normal bowel sounds. Extremities: +2 bilateral pitting edema extending at least to his thighs. Skin: No rash, ecchymoses or petechiae. Results & Data Vital Signs (Past 12 Hours) Vital Signs Temp Pulse Pulse Resp BP Pulse Ox 08/06/19 07:46 36.8 C 94 H 16 121/86 91 08/06/19 04:30 36.5 C 93 H 18 131/89 91 08/06/19 04:07 80 16 91 08/06/19 01:21 98 H 08/06/19 00:20 36.4 C L 91 H 18 114/83 92 Laboratory Results Abnormal lab results 08/02/19 08/06/19 08/06/19 Range/Units 11:28 07:04 07:04 RBC 4.66 L (4.7-6.1) M/uL Hgb 13.4 L (14.0-18.0) g/dL MCHC 31.5 L (32-36) g/dL RDW Std Deviation 53.8 H (36.4-46.3) fL RDW Coeff of Leoncio 16.2 H (11.5-14.5) % Glucose 100 H (70-99) mg/dl Total Protein (PEP) 5.1 L (6.2-8.3) G/DL Albumin (PEP) 2.1 L (3.8-4.8) G/DL [id number] 0.4 H (0.2-0.3) G/DL Gamma Globulins 0.7 L (0.8-1.7) G/DL Angiotensin Convert Enz 156 H (9-67) U/L Diagnostic Findings Telemetry: Sinus rhythm, heart rate in the 70s to 80s. No further VT. Repeat echocardiogram: Similar LV function, pericardial effusion is improved PG Care Time/CCT Total # of Minutes Spent Total Time Spent with Patient: Total time spent is greater than 50% in coordination of care (as documented) at patient's floor/unit and/or counseling patient:
[2019-08-06] MEDS: FUROSEMIDE 80 MG TAB PO SCH (15:58)
--- NOTE | 2019-08-06 16:44 | Hospitalist Progress Note ---
Date of Service August 06, 2019 Assessment & Plan (1) New onset of congestive heart failure: With new onset systolic acute CHF, likely developing over the last 3 months with weight gain of approximately 48 pounds in the last 6 months, likely all fluid weight. No anginal type symptoms, low suspicion for ischemic cardiomyopathy. - Checking Lyme-negative, HIV-negative, SPEP-shows acute phase reactant change, CHAYA level-elevated, iron studies-no evidence of iron overload. - Will also get AM cortisol, [place] in the morning. - Appreciate cardiology consultation - Instituting beta-lenka, ACEi - Daily weights, strict I's and O's, fluid restriction of 1800 mL's daily, low- sodium diet - Continue to diurese with Lasix 40 mg PO BID -> [place] today. Will monitor his output with oral. - Follow BMP and replace lytes as needed to keep K+>4.0 and Mag>2.0. (2) Pericardial effusion: Moderate on echocardiogram, no tamponade physiology. Likely secondary to CHF and hypoalbuminemia which is likely due to poor absorption from gut edema. - Repeat echocardiogram shows improvement. - Continue diuresis (3) Pleural effusion: Secondary to CHF. - Diuresing as above (4) AG (obstructive sleep apnea): Severe on recent outpatient home sleep study - still awaiting CPAP delivery. - Continue CPAP while here in the hospital - Asked case management to check on the status of the delivery of his CPAP to home (5) Anxiety: Continue home sertraline (6) Tachycardia: Sinus tachycardia secondary to CHF. - Diuresing and adding beta-lenka (7) Obesity: Has always been obese but baseline weight approximately 1 year ago was 380 pounds. Recent weight gain is likely all fluid weight from CHF as above. - Patient has made a conscious effort to eat healthier the last 2 months to lose weight - Continue counseling (8) Hyperlipidemia: LDL earlier this year was significant elevated at 191 and then on repeat is down to 140 after dietary changes. - Started atorvastatin 20mg daily - Needs follow-up LFTs and lipid panel in 6 weeks (9) Nonsustained ventricular tachycardia: Had one 6 beat run of VT on 08/03, then another 20 beat run on 08/04. - Electrolytes as above - Cardiology initiating LifeVest before discharge (10) DVT prophylaxis: SQ heparin, HARVEY hose Subjective Feeling better today. Less shortness of breath. Still feels swelling is present in the legs, but feels the abdomen is better. Reports no fevers/chills, chest pain, abdominal pain, nausea, or vomiting. Physical Exam Constitutional: WD/WN, vitals as above Eyes: EOM intact bilaterally; no conjunctival abnormality ENMT: external ear and nose normal, oropharynx normal Neck: trachea midline, no thyromegaly normal visual inspection Respiratory: normal respiratory effort, lungs clear to auscultation no respiratory distress Cardiovascular: Rate/Rhythm: regular rate and regular rhythm Heart Sounds: normal S1 and normal S2 Extremities: + edema Gastrointestinal (Abdomen): Inspection/Auscultation: abdomen normal to inspection; abdomen not distended Musculoskeletal: no cyanosis or clubbing, extremities motor strength 5/5 Skin: no rashes, warm and dry Neurologic: moves all extremities and awake Psychiatric: Orientation: alert, oriented to person and cooperative Results & Data Vital Signs (Past 12 Hours) Vital Signs Temp Pulse Pulse Resp BP Pulse Ox 08/06/19 16:24 92 H 08/06/19 16:03 36.5 C 83 20 124/81 96 08/06/19 12:27 36.9 C 84 20 128/72 95 08/06/19 07:46 36.8 C 94 H 16 121/86 91 08/06/19 06:30 36.9 C 84 20 128/68 98 PG Care Time/CCT Total # of Minutes Spent Total Time Spent with Patient: Total time spent is greater than 50% in coordination of care (as documented) at patient's floor/unit and/or counseling patient:
[2019-08-07] MEDS: HEPARIN SOD 5,000 UNIT/0.5 ML VIAL SQ SCH ×2 (06:11→17:35)
[2019-08-07 07:22] LABS: Creatinine Ur 48 MG/DL (20-320); Protein, Urine 24 Hour 2025 MG/24HRS. (0-149); Total Protein, Urine 45 MG/DL; Urine Protein/Creatinine Ratio 938 (<OR=115)
[2019-08-07 07:56] LABS: Hematocrit (blood only) 42.6 % (42-52); Hemoglobin 13.3 g/dL (14.0-18.0); Mean Corpuscular Hgb Conc 31.2 g/dL (32-36); Mean Corpuscular Volume 89.7 fL (80-100); Mean Platelet Volume 10.1 fL (7.4-10.4); Platelet Count 214 K/uL (130-400); RDW Standard Deviation 52.4 fL (36.4-46.3); Red Blood Count 4.75 M/uL (4.7-6.1); White Blood Count 5.32 K/uL (4.8-10.8)
[2019-08-07 08:32] LABS: BUN Creatinine Ratio 13.6 (10-20); Creatinine Clr Calc Pharmacy 229.1 ml/min; Est GFR (African American) 145.9; Est GFR (Non-African American) 125.9; Magnesium 1.7 mg/dl (1.8-2.4); Phosphorus 4.2 mg/dl (2.5-4.9); Potassium 3.8 mmol/L (3.5-5.1)
[2019-08-07] MEDS: FUROSEMIDE 80 MG TAB PO SCH ×2 (08:40→16:20)
[2019-08-07] MEDS: SERTRALINE HCL 50 MG TABLET PO SCH ×2 (08:41)
[2019-08-07] MEDS: carvediloL 6.25 MG TAB PO SCH (08:41)
[2019-08-07] MEDS: ATORVASTATIN 20 MG TAB PO SCH (08:42)
--- NOTE | 2019-08-07 13:45 | Ultrasound Report ---
BILATERAL LOWER EXTREMITY VENOUS DOPPLER CLINICAL HISTORY: Concern for DVT. Lower extremity edema. COMPARISON STUDY: No previous studies for comparison. TECHNIQUE: Sonography of the deep venous system of the bilateral lower extremities was performed. Co mpression and augmentation were evaluated. FINDINGS: The bilateral common femoral, superficial femoral and popliteal veins were compressible. A ugmentation was normal. Flow was shown within the deep calf vessels. Bilateral lower extremity edema was noted. IMPRESSION: No evidence of deep venous thrombus within the bilateral lower extremities. Electronically signed by: Dk Vincent M.D. 08/07/2019 1:43 PM
--- NOTE | 2019-08-07 16:49 | Cardiology Progress Note ---
Date of Service August 07, 2019 Assessment & Plan (1) Acute on chronic systolic (congestive) heart failure: Patient remains significantly hypervolemic on his exam. He has continued to diuresis now on oral medication since yesterday. I would continue to diurese him until his creatinine increases or he loses his peripheral edema, that can probably be done as an outpatient. Since he feels well I think would be safe to go home and we can monitor him closely. I would send him home with a prescription for Zaroxolyn to take as needed, especially with the long weekend coming up and that may avoid a return to the emergency room. (2) Cardiomyopathy: He has a severe dilated cardiomyopathy which based on symptoms is about 3 months, perhaps little bit longer, in duration. There is no obvious cause. He does not recall having a viral illness but he may have had one and not recall it, he does have an elevated angiotensin-converting enzyme level. The significance of that is uncertain but we should set him up for a cardiac MRI (as an outpatient) which is not done in this area. We can arrange that in follow- up. It is very unlikely that his cardiomyopathy is ischemic, I do not think we need an ischemia evaluation at this time. (3) AG (obstructive sleep apnea): Noted to be severe on recent outpatient home sleep study. Could be a contributing factor to his volume overload. (4) Obesity: (5) Nonsustained ventricular tachycardia: He had a 21 beat of nonsustained ventricular tachycardia several nights ago. This was rapid and is worrisome. He is now on carvedilol and seems to be tolerating it well, that may help. He has also been diuresed and there may be electrolyte abnormalities however what we are measuring including potassium and magnesium are not terribly remarkable. Nevertheless I think he should have a LifeVest when he goes home and I am in the process of arranging that. Subjective He continues to feel well, he is ambulating in the hallways. His shortness of breath has improved dramatically as has his exercise ability. He has no orthopnea or PND. He does note that he continues to have a lot of peripheral edema and he also notes that he has bilateral calf discomfort which started around the time his Lasix was introduced several days ago. I had not been aware of that until today. Physical Exam Physical Exam: Constitutional: Alert, cooperative and in no distress. Pulmonary: Clear to auscultation bilaterally. Cardiac: Regular rhythm with no murmur, gallop or rub. Abdomen: Soft, nontender with normal bowel sounds. Extremities: +3 bilateral pretibial edema extending to his knees, his calves are quite tense. Skin: No rash, ecchymoses or petechiae. Results & Data Vital Signs (Past 12 Hours) Vital Signs Temp Pulse Pulse Resp BP BP Pulse Ox 08/07/19 15:32 36.8 C 96 H 18 133/83 91 08/07/19 14:22 37.4 C 98 H 18 116/76 113/68 95 08/07/19 11:47 37.4 C 98 H 18 116/76 95 08/07/19 08:00 94 H 08/07/19 07:16 36.4 C L 90 18 129/89 93 Laboratory Results Abnormal lab results 08/03/19 08/07/19 08/07/19 Range/Units 13:45 07:21 07:21 Hgb 13.3 L (14.0-18.0) g/dL MCHC 31.2 L (32-36) g/dL RDW Std Deviation 52.4 H (36.4-46.3) fL RDW Coeff of Leoncio 16.0 H (11.5-14.5) % Magnesium 1.7 L (1.8-2.4) mg/dl Ur Total Protein 24 Hr 2025 H (0-149) MG/24HRS. Protein/Creat Ratio 24h 938 H (<MX=307) PG Care Time/CCT Total # of Minutes Spent Total Time Spent with Patient: Total time spent is greater than 50% in c oordination of care (as documented) at patient's floor/unit and/or counseling patient:
--- NOTE | 2019-08-07 17:19 | Discharge Summary ---
Date of Service August 07, 2019 Admission HPI Per Admitting Provider The patient is 28-year-old male with super morbid obesity; he has noted gradually progressive dyspnea and swelling of the legs for the last 2 months. He has been taking Lasix which was switched to HCTZ yesterday by his family physician. Today he noticed increasing scrotal edema. The further work-up done in the ER showed that patient has acute congestive heart failure with anasarca. He was started on IV Lasix and will be admitted for further evaluation and management. He denies any chest pain. No cough/ sputum, hemoptysis. He has a history of sleep apnea and is supposed to start using CPAP. Principal Diagnosis New dilated cardiomyopathy Discharge Exam Constitutional WD/WN, vitals as above Eyes EOM intact bilaterally; no conjunctival abnormality ENMT external ear and nose normal, oropharynx normal Neck trachea midline, no thyromegaly normal visual inspection Respiratory normal respiratory effort, lungs clear to auscultation no respiratory distress Cardiovascular RRR, no murmur, no edema Rate/Rhythm: regular rate and regular rhythm Heart Sounds: normal S1 and normal S2 Extremities: + edema Gastrointestinal (Abdomen) Inspection/Auscultation: abdomen normal to inspection; abdomen not distended Musculoskeletal no cyanosis or clubbing, extremities motor strength 5/5 Skin no rashes, warm and dry Neurologic moves all extremities and awake Psychiatric Orientation: alert, oriented to person and cooperative Discharge Data Allergies Allergy/AdvReac Type Severity Reaction Status Date / Time Sulfa (Sulfonamide Allergy Unknown hives Verified 08/01/19 15:37 Antibiotics) Consultations 08/01/19 18:14 ED Decision to Admit Stat 08/01/19 20:08 Consult Cardiology Routine 08/02/19 16:12 Consult Case Management - Discharge Planning Routine 08/05/19 00:21 [facility] [place] CHF Program Referral Routine Ordered Studies 08/01/19 16:22 CT angio chest PE protocol Stat 08/07/19 11:11 US venous doppler LE Urgent Hospital Course (1) New onset of congestive heart failure: With new onset systolic acute CHF, likely developing over the last 3 mo nths with weight gain of approximately 48 pounds in the last 6 months, likely all fluid weight. No anginal type symptoms, low suspicion for ischemic cardiomyopathy. EF was 25-30% on echo. Unknown cause at this time, though AG can contribute. - Checking Lyme-negative, HIV-negative, SPEP-shows acute phase reactant change, CHAYA level-elevated, iron studies-no evidence of iron overload. AM cortisol was normal. - CLAYTON was the final pending test on discharge. - Due to elevated CHAYA level, he will get an outpatient cardiac MRI to rule out infiltrative diseases. - Discharged on Coreg 6.25mg PO BID, lisinopril 2.5mg PO daily. These can be titrated up within 1-2 weeks as he seems to be tolerating them well. - Discharged on Lasix 80 mg PO BID with instructions to measure weights every day. He still has plenty of fluid to diurese, so his discharge weight is 176 kg, but I would not consider this his dry weight. - Follow up with Annetta Galeano in the the clinic next week. (2) Pericardial effusion: Moderate on echocardiogram, no tamponade physiology. Likely secondary to CHF and hypoalbuminemia. - Repeat echocardiogram on 08/05 showed improvement. (3) Pleural effusion: Secondary to CHF. - Diuresing as above (4) AG (obstructive sleep apnea): Severe on recent outpatient home sleep study - Case management followed up and his CPAP should be delivered by today. (5) Anxiety: Continue home sertraline (6) Tachycardia: Sinus tachycardia secondary to CHF. - Diuresing and adding beta-lenka -> Coming down by discharge. (7) Obesity: Has always been obese but baseline weight approximately 1 year ago was 380 pounds. Recent weight gain is likely all fluid weight from CHF as above. - Patient has made a conscious effort to eat healthier the last 2 months to lose weight - Continue counseling (8) Hyperlipidemia: LDL earlier this year was significant elevated at 191 and then on repeat is down to 140 after dietary changes. - Started atorvastatin 20mg daily - Needs follow-up LFTs and lipid panel in 6 weeks (9) Nonsustained ventricular tachycardia: Had one 6 beat run of VT on 08/03, then another 20 beat run on 08/04. - Cardiology initiating LifeVest before discharge -> Will be delivered by [facility] before he goes home today. 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 Nice's office with her associate, Lauren Alvarez PA-C, on MondayAugust 13 at 10:00 am. *If you need to change this appointment, call the office at [phone].) Annetta Galeano PA-C [Physician Armature Inspector] - 08/15/19 10:30 am (Please, follow up at [facility] Cardiology Office / CHF Clinic with Shu Galeano PA-C on August 15 at 10:30 am. *The office is located in [address] of [facility] [place], next to this [facility]. If you need to change this appointment, call the office at [phone].) Diet: Heart Healthy and Low Sodium (2gm) Addtl Attending Provider Instructions: Please weigh yourself every day and call your doctor if you start to gain weight. Addtl Shrimper Provider Instructions: Call 911 and go to the Emergency Room if: * You have tightness or pain in your chest that does not go away with rest * You are very short of breath even with rest Call your doctor if any of the following symptoms or problems start or get worse: * Shortness of breath or difficulty breathing * Wake up at night short of breath * Chest pain * Cough * Swelling of your hands, fee, or legs * More fatigued or tired with your normal activity * Palpitations - sudden fast heart beats WEIGHT * Weigh yourself every morning after using the bathroom. * Use the same scale. * Wear the same amount of clothing. * Write your weight down on your chart. * Call your doctor if you gain more than 2-3 pounds in 1-2 days. MEDICATIONS * Use this discharge instruction sheet for instructions. * Take your medications at the time your doctor ordered. * Do not skip a dose of your medicines. * If you miss a dose of medicine, take as soon as possible, but DO NOT DOUBLE A DOSE. * Read your medicine information when you get home. * Know all of the side effects of your medicine. * Call your doctor's office if you have any side effects. * Be sure all of your doctors know what medicine and herbs you take (including cold, flu, and herbal medicine). Take the following with you to your follow-up doctor appointments: * Weight Chart * Medication List * List of questions Do not drink excessive alcohol, beer or wine. Pending Studies at Discharge: Yes (Labs related to cardiomyopathy) Stand-Alone Forms: [facility], Work/School Release (Inpt), Smoking Cessation Medications and DC Order Prescriptions: New atorvastatin 20 mg Tablet 20 mg PO QAM Qty: 30 RF: 0 carvedilol 6.25 mg Tablet 6.25 mg PO BID Qty: 60 RF: 0 lisinopril 2.5 mg Tablet 2.5 mg PO QAM Qty: 30 RF: 0 furosemide 80 mg Tablet 80 mg PO [id number] Qty: 60 RF: 0 Continued (DME) CPAP Supplies Misc See Rx Instructions .ROUTE .MEDSUPPLY Qty: 1 RF: 0 (DME) CPAP Machine Misc See Rx Instructions .ROUTE .MEDSUPPLY Qty: 1 RF: 0 sertraline [Zoloft] 25 mg tablet 25 mg PO QAM RF: 0 sertraline [Zoloft] 50 mg tablet 50 mg PO QAM RF: 0 loratadine [Claritin] 10 mg Tablet 10 mg PO QAM RF: 0 omega 2-hfc-ndp-fish oil [Fish Oil] 1,000 mg (120 mg-180 mg) Capsule 2 cap PO QAM RF: 0 Discontinued hydrochlorothiazide 25 mg tablet 25 mg PO QAM RF: 0 Discharge Orders: Discharge Order (Routine); Ordered 08/07/19 Ordered By: Jerod Villa Admission Data Admit Date/Time: 08/01/19 18:34 Attending Provider: Jerod Villa Admit Provider: Shashank Pantoja Primary Care Provider: Marie Pompa V. Other Providers: Shashank Pantoja ; Hardeep Reyes ; Annetta Galeano Other Interventions: Discharge Summary Assessment (RN) Last Done: 08/07/19 14:22
[2019-08-12 13:55] LABS: Anti Nuclear Antibody Screen POSITIVE (NEGATIVE)
== END 2019-08-07 17:35 | disposition home or self-care (01) | DRG 292 ==
LOC: ED 14:27 → 2S 18:34 → SUATTDRO 18:34 → 2S 19:38